=== PATIENT | female | born 1930 | race Caucasian/White ===

== ENCOUNTER → 2016-10-31 | Outpatient (CLI) | payer MEDICARE, BC ==
--- NOTE | 2016-11-01 10:09 | BD ---
EXAMINATION TYPE: MG DEXA axial skeleton. DATE OF EXAM: 10/31/2016 4:02 PM COMPARISON: Prior DEXA bone scan June 19, 2013. CLINICAL HISTORY: Postmenopausal female with known osteopenia, osteoporosis per prescription Height: 4 FT 11 IN Weight: 111 FRAX RISK QUESTIONS: Alcohol (3 or more units per day): NO Family History (Parent hip fracture): NO Glucocorticoids (More than 3mos): NO (Ex: prednisone, prednisolone, methylprednisolone, dexamethasone, and hydrocortisone). History of Fracture in Adulthood: NO Secondary Osteoporosis: 1. Type 1 Diabetes: NO 2. Hyperthyroidism: NO 3. Menopause before 45: NO 4. Malnutrition: NO 5. Chronic liver disease: NO Rheumatoid Arthritis: NO Current Tobacco Use: NO RISK FACTORS HISTORY OF: Active: NO Postmenopausal woman: SOMETIME IN HER FORTIES NOT SURE Lost more than 2 inches in height since high school: YES Poor Health: YES MEDICATIONS: Thyroid Medications: YES Which medication: SYNTHROID How Lon YRS Additional Medications: CRESTOR, SYNTHROID , CALTRATE, B12, MAGNESIUM, HEART MEDS, BLOOD PRESSURE MED S Additional History: POOR HISTORIAN EXAM MEASUREMENTS: Bone mineral densitometry was performed using the [employer]. Bone mineral density as measured about the Lumbar spine is: ----- L1-L4(G/cm2): 1.223 T Score Values are as follows: ----- L2: -1.0 ----- L3: 1.8 ----- L4: 1.1 ----- L1-L4: 0.4 Bone mineral density has: Increased 9.7% since study of: 2012 Bone mineral density about the R hip (g/cm2): 0.656 Bone mineral density about the L hip (g/cm2): 0.674 T Score values are as follows: -----R Neck: -2.7 -----L Neck: -2.6 -----R Intertrochanter: -3.4 -----L Intertrochanter: -3.1 Bone mineral density has: Decreased -12.6 % since study of: 2012 IMPRESSION: Osteoporosis (T Score less than -2.5) as noted by T Score values at the bilateral hips is now present . Bone density is decreased or diminished from prior. There is increased fracture risk and therapy is usually indicated based on age. Re-Screen 1-2 years. Bone density noted falsely elevated in the low back. NOTE: T-SCORE=SD OF THE YOUNG ADULT MEAN.
--- NOTE | 2016-11-01 11:03 | MM ---
Reason for exam: screening (asymptomatic). Last mammogram was performed 11 years and 1 month ago. History: Patient is postmenopausal. Physical Findings: A clinical breast exam by your physician is recommended on an annual basis and results should be correlated with mammographic findings. MG 3D Screening Mammo W/Cad Bilateral CC and MLO view(s) were taken. No prior studies available for comparison. Finding: There are typically benign round, diffuse/scattered calcifications in both breasts. Previous mammotome biopsy in the right breast. There is a chronic nodularity bilaterally. There is no discrete abnormality. ASSESSMENT: Benign, BI-RAD 2 RECOMMENDATION: Routine screening mammogram of both breasts in 1 year.
== END | disposition home or self-care (01) ==
LOC: RADMAMWWP 14:37
PROVIDERS: ATTEND Internal Medicine
DX: Z12.31 Encounter for screening mammogram for malignant neoplasm of breast (principal); M81.0 Age-related osteoporosis without current pathological fracture
CPT/HCPCS: 77080; 77063; G0202

== ENCOUNTER → 2016-12-19 | Outpatient (CLI) | payer MEDICARE, BC ==
[~2016-12-19] MED LIST: DENOSUMAB 60 MG/ML 1 ML SYRINGE SQ ONE
[2016-12-19 13:51] VITALS: BP 146/68; PULSE 54; RESP 16; TEMP 98.1
== END | disposition home or self-care (01) ==
LOC: PROCWHC3 13:29
PROVIDERS: ATTEND Internal Medicine
DX: M81.0 Age-related osteoporosis without current pathological fracture (principal); N18.3 Chronic kidney disease, stage 3 (moderate)
CPT/HCPCS: 96372; J0897

== ENCOUNTER 2017-04-09 15:06 | Emergency (ER) | payer MEDICARE, BC ==
[2017-04-09] MEDS ORDERED: ONDANSETRON 4 MG/2 ML VIAL IVP STA (15:24)
[2017-04-09] MEDS ORDERED: HYDROmorphone 1 MG/ML 1 ML SYRINGE IVP STA (15:24)
[2017-04-09] MEDS ORDERED: SODIUM CHLORIDE 0.9% 1,000 ML IV STA (15:24)
[2017-04-09] MEDS ORDERED: RX INFO: IV CONTRAST WAS GIVEN 1 EACH MISC MISCELLANE PRN (15:24)
--- NOTE | 2017-04-09 15:27 | ED ---
Abdominal Pain HPI - General Chief Complaint: Abdominal Pain Stated Complaint: lt side pain Time Seen by Provider: 04/09/17 15:16 Source: patient Mode of arrival: ambulatory Limitations: no limitations - History of Present Illness Initial Comments: This 86-year-old white female presents with a complaint of some left lower quadrant abdominal pain. She states that it came on yesterday. It is fairly severe in nature. She denies any nausea vomiting diarrhea or constipation or fever. She saw her doctor yesterday and received a pain shot. The pain has been very persistent. She denies any known history of diverticulitis. She denies any previous similar incidents. She apparently saw her doctor's nurse practitioner yesterday and they thought she might have an abdominal wall muscle strain and put her on baclofen and a Medrol Dosepak. She has not started taking this medication as of yet. She has had occasional pain in her right lower abdomen. She does relate a significant history of renal disease. No other complaints or modifying factors. - Related Data Home Medications Medication Instructions Recorded Confirmed Levothyroxine Sodium [Synthroid] 75 mcg PO [id number] 09/24/14 04/09/17 Rosuvastatin [Crestor] 10 mg PO W/SUPPER 09/24/14 04/09/17 Calcium Carbonate/Vitamin D3 1 tab PO W/SUPPER 12/19/16 04/09/17 [Caltrate 600 Plus D3 Tablet] Cholecalciferol [Vitamin D3] 2,000 unit PO DAILY 12/19/16 04/09/17 Allopurinol [Zyloprim] 100 mg PO DAILY 04/09/17 04/09/17 Aspirin EC [Ecotrin Low Dose] 81 mg PO DAILY 04/09/17 04/09/17 Baclofen [Lioresal] 5 mg PO QID 04/09/17 04/09/17 Famotidine [Pepcid] 20 mg PO DAILY 04/09/17 04/09/17 Furosemide [Lasix] 80 mg PO MOFR 04/09/17 04/09/17 Isosorbide Mononitrate ER [Imdur] 30 mg PO DAILY 04/09/17 04/09/17 Isosorbide Mononitrate ER [Imdur] 60 mg PO DAILY 04/09/17 04/09/17 Metoprolol Succinate (ER) [Toprol 50 mg PO HS 04/09/17 04/09/17 Xl] Multivitamins, Thera [Multivitamin 1 tab PO W/SUPPER 04/09/17 04/09/17 (formulary)] Thiamine [Vitamin B-1] 100 mg PO W/SUPPER 04/09/17 04/09/17 methylPREDNISolone Dose Pack See Taper PO DAILY 04/09/17 04/09/17 [Medrol Dose Pack] Previous Rx's Medication Instructions Recorded Ciprofloxacin HCl [Cipro] 500 mg PO Q12HR #20 tablet 04/09/17 Hydrocodone/Acetaminophen [[place] 1 - 2 each PO Q4HR PRN #20 tab 04/09/17 5-325] metroNIDAZOLE [Flagyl] 500 mg PO BID #20 tab 04/09/17 Allergies Allergy/AdvReac Type Severity Reaction Status Date / Time No Known Allergies Allergy Verified 04/09/17 15:57 Review of Systems ROS Statement: Those systems with pertinent positive or pertinent negative responses have been documented in the HPI. ROS Other: All systems not noted in ROS Statement are negative. Past Medical History Past Medical History: Blood Disorder, GERD/Reflux, Hyperlipidemia, Osteoarthritis (OA), Renal Disease, Thyroid Disorder Additional Past Medical History / Comment(s): 09/19/15 Pt presented to [facility] ER with chest pain-tightness anterior aspect of her chest which radiated to her L arm. This began today and has associated SOB. Symptoms improved when she sat down and rested. Pt is admitted with clinical impression of chest pain, unstable angina pectorias, NSTEMI. Other HX: CKD stage IV, hypothyroidism, anemia, sciatica radiating down both legs, UTI's in the past. PT states she was taken off her HTN medication about one year ago. History of Any Multi-Drug Resistant Organisms: None Reported Past Surgical History: Cholecystectomy, Joint Replacement, Orthopedic Surgery, Tonsillectomy Additional Past Surgical History / Comment(s): Bilateral total knee replacements , Bilateral Cataract surgery, Right carpal tunnel release, back injections, colonoscopy-normal. Past Anesthesia/Blood Transfusion Reactions: No Reported Reaction Past Psychological History: Anxiety Smoking Status: Never smoker - Past Family History Mother Family Medical History: CVA/TIA Additional Family Medical History / Comment(s): Mother lived into her 80's Father Family Medical History: Coronary Artery Disease (CAD) Additional Family Medical History / Comment(s): Father lived into his 80's Sister(s) Family Medical History: Cancer Son(s) Family Medical History: No Reported History Daughter(s) Family Medical History: No Reported History General Exam - General Exam Comments Initial Comments: GENERAL: The patient is well nourished and well hydrated. She is in some moderate distress. VITAL SIGNS: Heart rate, blood pressure, respiratory rate reviewed as recorded in nurse's notes. EYES: Pupils are round and reactive. Extraocular movements are intact. No conjunctival / lid redness or swelling. ENT: No external evidence of injury, swelling, or ecchymosis. Airway is patent. Throat is clear. NECK: Nontender. No swelling or evidence of injury. No subcutaneous emphysema. Trachea is midline. No thyroid mass. HEART: Regular rate and rhythm. Good peripheral pulses. LUNGS/CHEST: Breath sounds clear and equal bilaterally. No rales, rhonchi, or wheezes. No ecchymosis, subcutaneous emphysema, or tenderness. ABDOMEN: Abdomen is soft with tenderness noted in the left lower quadrant. There is no flank tenderness noted. No palpable masses or organomegaly. No peritoneal signs. No abdominal wall swelling or ecchymosis. EXTREMITIES: No extremity tenderness. Normal muscle tone and function. No thoracolumbar tenderness. NEUROLOGIC: Sensation is grossly intact. Cranial nerve exam reveals face is symmetrical, tongue is midline, speech is clear. SKIN: No abrasions or ecchymosis is noted. No induration or masses noted. PSYCHIATRIC: Alert and oriented. Appropriate behavior and judgment. Limitations: no limitations Course Vital Signs 04/09/17 04/09/17 15:08 16:30 Temperature 97.6 F 98.5 F Pulse Rate 71 61 Respiratory 24 18 Rate Blood Pressure 180/95 168/80 O2 Sat by Pulse 99 97 Oximetry Medical Decision Making - Medical Decision Making The patient was seen and examined. All diagnostics were reviewed. Dilaudid as well as Zofran was given intravenously. She is feeling remarkably better on recheck. The laboratory shows a slight elevation of the white blood cell count. She had a computed tomography scan of the abdomen and pelvis. This needed to be done without contrast due to her renal disease. Her BUN/ creatinine and creatinine are elevated and lower trended out and are stable as compared to previous. The computed tomography scan shows significant evidence of diverticulosis but no definite evidence of diverticulitis. Is felt as though she likely could still potentially have a degree of diverticulitis as this is clinically suspicious but it is just not showing up on a noncontrasted computed tomography scan. She feels okay to be discharged home with attempt at outpatient treatment. Return parameters are discussed. Diet therapy is discussed. - Lab Data Result diagrams: 04/09/17 15:43 04/09/17 15:43 Lab Results 04/09/17 04/09/17 04/09/17 Range/Units 15:43 15:43 15:43 WBC 13.6 H (3.8-10.6) k/uL RBC 3.74 L (3.80-5.40) m/uL Hgb 11.8 (11.4-16.0) gm/dL Hct 36.7 (34.0-46.0) % MCV 98.1 (80.0-100.0) fL MCH 31.6 (25.0-35.0) pg MCHC 32.3 (31.0-37.0) g/dL RDW 14.7 (11.5-15.5) % Plt Count 164 (150-450) k/uL Neutrophils % 88 % Lymphocytes % 6 % Monocytes % 4 % Eosinophils % 0 % Basophils % 0 % Neutrophils # 12.0 H (1.3-7.7) k/uL Lymphocytes # 0.8 L (1.0-4.8) k/uL Monocytes # 0.6 (0-1.0) k/uL Eosinophils # 0.0 (0-0.7) k/uL Basophils # 0.0 (0-0.2) k/uL PT 11.1 (9.0-12.0) sec INR 1.1 (<1.2) APTT 20.0 L (22.0-30.0) sec Sodium 141 (137-145) mmol/L Potassium 4.3 (3.5-5.1) mmol/L Chloride 108 H (98-107) mmol/L Carbon Dioxide 21 L (22-30) mmol/L Anion Gap 12 mmol/L BUN 56 H (7-17) mg/dL Creatinine 3.41 H (0.52-1.04) mg/dL Est GFR (MDRD) Af Amer 16 (>60 ml/min/1.73 sqM) Est GFR (MDRD) Non-Af 13 (>60 ml/min/1.73 sqM) Glucose 116 H (74-99) mg/dL Calcium 8.6 (8.4-10.2) mg/dL Total Bilirubin 0.5 (0.2-1.3) mg/dL AST 20 (14-36) U/L ALT 27 (9-52) U/L Alkaline Phosphatase 55 (38-126) U/L Total Protein 6.2 L (6.3-8.2) g/dL Albumin 3.8 (3.5-5.0) g/dL Amylase 80 (30-110) U/L Lipase 54 (23-300) U/L Urine Color Urine Appearance (Clear) Urine pH (5.0-8.0) Ur Specific [place] (1.001-1.035) Urine Protein (Negative) Urine Glucose (UA) (Negative) Urine Ketones (Negative) Urine Blood (Negative) Urine Nitrite (Negative) Urine Bilirubin (Negative) Urine Urobilinogen (<2.0) mg/dL Ur Leukocyte Esterase (Negative) Urine WBC (0-5) /hpf Urine Bacteria (None) /hpf Urine Yeast (Budding) (None) /hpf // Range/Units 17:03 WBC (3.8-10.6) k/uL RBC (3.80-5.40) m/uL Hgb (11.4-16.0) gm/dL Hct (34.0-46.0) % MCV (80.0-100.0) fL MCH (25.0-35.0) pg MCHC (31.0-37.0) g/dL RDW (11.5-15.5) % Plt Count (150-450) k/uL Neutrophils % % Lymphocytes % % Monocytes % % Eosinophils % % Basophils % % Neutrophils # (1.3-7.7) k/uL Lymphocytes # (1.0-4.8) k/uL Monocytes # (0-1.0) k/uL Eosinophils # (0-0.7) k/uL Basophils # (0-0.2) k/uL PT (9.0-12.0) sec INR (<1.2) APTT (22.0-30.0) sec Sodium (137-145) mmol/L Potassium (3.5-5.1) mmol/L Chloride (98-107) mmol/L Carbon Dioxide (22-30) mmol/L Anion Gap mmol/L BUN (7-17) mg/dL Creatinine (0.52-1.04) mg/dL Est GFR (MDRD) Af Amer (>60 ml/min/1.73 sqM) Est GFR (MDRD) Non-Af (>60 ml/min/1.73 sqM) Glucose (74-99) mg/dL Calcium (8.4-10.2) mg/dL Total Bilirubin (0.2-1.3) mg/dL AST (14-36) U/L ALT (9-52) U/L Alkaline Phosphatase (38-126) U/L Total Protein (6.3-8.2) g/dL Albumin (3.5-5.0) g/dL Amylase (30-110) U/L Lipase (23-300) U/L Urine Color Yellow Urine Appearance Clear (Clear) Urine pH 6.0 (5.0-8.0) Ur Specific [place] 1.012 (1.001-1.035) Urine Protein 3+ H (Negative) Urine Glucose (UA) Negative (Negative) Urine Ketones Negative (Negative) Urine Blood Trace H (Negative) Urine Nitrite Negative (Negative) Urine Bilirubin Negative (Negative) Urine Urobilinogen <2.0 (<2.0) mg/dL Ur Leukocyte Esterase Negative (Negative) Urine WBC 1 (0-5) /hpf Urine Bacteria Occasional H (None) /hpf Urine Yeast (Budding) Few H (None) /hpf Disposition Clinical Impression: Abdominal pain, Diverticulosis, Leukocytosis, Diverticulitis, Hypertension Disposition: HOME SELF-CARE Condition: Good Instructions: Abdominal Pain (ED), Diverticulitis (ED), Hypertension (ED) Prescriptions: Ciprofloxacin HCl [Cipro] 500 mg PO Q12HR #20 tablet Hydrocodone/Acetaminophen [[place] 5-325] 1 - 2 each PO Q4HR PRN #20 tab PRN Reason: Pain metroNIDAZOLE [Flagyl] 500 mg PO BID #20 tab Referrals: Rikki Leong MD [Primary Care Provider] - 1-2 days Time of Disposition: 17:42
[2017-04-09 16:03] LABS: Basophils % (A) 0 %; CH 32.2; CHCM 32.9; Eosinophils % (A) 0 %; HCT 36.7 % (34.0-46.0); HDW 2.36; HGB 11.8 gm/dL (11.4-16.0); Luc # (Auto) 0.14; Luc % (Auto) 1; Lymphocytes # (A) 0.8 k/uL (1.0-4.8); Lymphocytes % (A) 6 %; MCH 31.6 pg (25.0-35.0); MCHC 32.3 g/dL (31.0-37.0); MCV 98.1 fL (80.0-100.0); Mean Platelet Volume 8.3; Monocytes # (A) 0.6 k/uL (0-1.0); Monocytes % (A) 4 %; Neutrophils % (A) 88 %; RBC 3.74 m/uL (3.80-5.40); RDW 14.7 % (11.5-15.5); WBC 13.6 k/uL (3.8-10.6); WBC (Perox) 13.29
[2017-04-09 16:07] LABS: Calcium 8.6 mg/dL (8.4-10.2); INR 1.1 (<1.2); Potassium 4.3 mmol/L (3.5-5.1); Prothrombin Time 11.1 sec (9.0-12.0); Total Bilirubin 0.5 mg/dL (0.2-1.3); Total Protein 6.2 g/dL (6.3-8.2)
--- NOTE | 2017-04-09 17:00 | CT ---
EXAMINATION TYPE: CT abdomen pelvis wo con DATE OF EXAM: 04/09/2017 COMPARISON: 09/24/2015 HISTORY: Pt states of abdominal pain. CT DLP: 659 mGycm Automated exposure control for dose reduction was used. TECHNIQUE: Helical acquisition of images was performed from the lung bases through the pelvis. FINDINGS: There is right pleural effusion. There is fibrotic changes at both lung bases. There are clips from cholecystectomy. Liver shows no focal defect. Spleen appears normal. There is no pancreatic mass. Abdominal aorta is atheromatous. There is no adrenal mass. Kidneys show no hydronephrosis. Ureters are not dilated. Appendix appears n ormal. There are numerous colonic diverticula. There is no evidence of diverticulitis. There are calc ified uterine fibroids. There is a pessary at the floor of the pelvis. There are spondylotic changes in the lumbar spine. I see no compression fracture. Bladder distends smoothly. Heart is enlarged. IMPRESSION: CARDIOMEGALY WITH RIGHT PLEURAL EFFUSION. THIS COULD RELATE TO SOME CONGESTIVE HEART FAILURE. THERE I S SIGNIFICANT IMPROVEMENT IN THE PLEURAL EFFUSIONS COMPARED TO LAST EXAM. ATHEROSCLEROTIC VASCULAR DISEASE. MODERATELY SEVERE COLONIC DIVERTICULOSIS. NORMAL APPENDIX. THERE IS CLEARING OF THE FREE FLUID IN THE PELVIS COMPARED TO OLD EXAM.
[2017-04-09 17:25] LABS: Appearance,Urine Clear (Clear); Bacteria,Urine Occasional /hpf; Bilirubin,Urine Negative (Negative); Glucose,Urine (UA) Negative (Negative); Ketones,Urine Negative (Negative); Leukocyte Esterase,Urine Negative (Negative); Nitrite,Urine Negative (Negative); Particle Count 9081; Protein,Urine 3+ (Negative); Specific Gravity,Urine 1.012 (1.001-1.035); UA Billing (MACRO vs. MICRO) MICRO; Urobilinogen,Urine <2.0 mg/dL (<2.0); WBC,Urine 1 /hpf (0-5)
[2017-04-09 17:45] VITALS: BP 175/86; PULSE 67; RESP 16; TEMP 97.8
[2017-04-09] MEDS ORDERED: MORPHINE SULFATE 4 MG/ML SYRINGE IVP STA (17:54)
[2017-04-09] MEDS ORDERED: MORPHINE SULFATE 2 MG/ML SYRINGE IVP ONE (17:56)
== END 2017-04-09 18:27 | disposition home or self-care (01) ==
LOC: EC 15:06
DX: K57.32 Diverticulitis of large intestine without perforation or abscess without bleeding (principal); I12.9 Hypertensive chronic kidney disease with stage 1 through stage 4 chronic kidney disease, or unspecified chronic kidney disease; D72.829 Elevated white blood cell count, unspecified; R79.89 Other specified abnormal findings of blood chemistry; N18.4 Chronic kidney disease, stage 4 (severe); E78.5 Hyperlipidemia, unspecified; K21.9 Gastro-esophageal reflux disease without esophagitis; E03.9 Hypothyroidism, unspecified; M19.90 Unspecified osteoarthritis, unspecified site; Z79.82 Long term (current) use of aspirin; Z79.899 Other long term (current) drug therapy; Z90.49 Acquired absence of other specified parts of digestive tract; Z53.20 Procedure and treatment not carried out because of patient's decision for unspecified reasons
CPT/HCPCS: 36415; 93005; 80053; 82150; 83690; 85025; 85610; 85730; 81001; 74176; 99284; 96374; 96375; 96361 ×2; J2405; J2270

== ENCOUNTER → 2017-08-20 | Outpatient (CLI) | payer MEDICARE, BC ==
[2017-08-20 14:07] LABS: Basophils # (A) 0.1 k/uL (0-0.2); Basophils % (A) 1 %; CH 30.9; CHCM 31.1; Eosinophils # (A) 0.4 k/uL (0-0.7); Eosinophils % (A) 5 %; HCT 33.2 % (34.0-46.0); HDW 2.22; HGB 10.4 gm/dL (11.4-16.0); Hypochromasia Slight; Luc # (Auto) 0.11; Luc % (Auto) 1; Lymphocytes # (A) 1.3 k/uL (1.0-4.8); Lymphocytes % (A) 16 %; MCH 31.2 pg (25.0-35.0); MCHC 31.2 g/dL (31.0-37.0); MCV 99.9 fL (80.0-100.0); Macrocytosis Slight; Mean Platelet Volume 8.7; Monocytes # (A) 0.5 k/uL (0-1.0); Monocytes % (A) 6 %; Neutrophils # (A) 5.6 k/uL (1.3-7.7); Neutrophils % (A) 71 %; RBC 3.33 m/uL (3.80-5.40); RDW 15.8 % (11.5-15.5); WBC 7.9 k/uL (3.8-10.6); WBC (Perox) 8.03
[2017-08-20 14:11] LABS: Calcium 9.7 mg/dL (8.4-10.2); Magnesium 1.9 mg/dL (1.6-2.3); Potassium 4.2 mmol/L (3.5-5.1); Total Bilirubin 0.3 mg/dL (0.2-1.3); Total Protein 6.2 g/dL (6.3-8.2); Uric Acid 5.7 mg/dL (3.7-7.4)
[2017-08-20 19:27] LABS: Appearance,Urine Clear (Clear); Bacteria,Urine Occasional /hpf; Bilirubin,Urine Negative (Negative); Glucose,Urine (UA) Negative (Negative); Ketones,Urine Negative (Negative); Leukocyte Esterase,Urine Large (Negative); Nitrite,Urine Negative (Negative); Particle Count 4118; Protein,Urine 2+ (Negative); RBC,Urine 2 /hpf (0-5); Specific Gravity,Urine 1.011 (1.001-1.035); Squamous Epithelial Cell,Urine 2 /hpf (0-4); UA Billing (MACRO vs. MICRO) MICRO; Urobilinogen,Urine <2.0 mg/dL (<2.0); WBC,Urine 15 /hpf (0-5)
[2017-08-21 11:55] LABS: Urine Creatinine 71.7 mg/dL
== END | disposition home or self-care (01) ==
LOC: LABWHC1 13:17
PROVIDERS: ATTEND Internal Medicine
DX: E78.5 Hyperlipidemia, unspecified (principal); E03.9 Hypothyroidism, unspecified; I12.9 Hypertensive chronic kidney disease with stage 1 through stage 4 chronic kidney disease, or unspecified chronic kidney disease; E11.22 Type 2 diabetes mellitus with diabetic chronic kidney disease; N18.3 Chronic kidney disease, stage 3 (moderate)
CPT/HCPCS: 36415; 80053; 80061; 81001; 82043; 82306; 82550; 82570; 83036; 83735; 83970; 84439; 84443; 84550; 85025

== ENCOUNTER 2018-03-21 16:40 | Emergency (ER) | payer MEDICARE, BC ==
[2018-03-21 17:15] VITALS: RESP 18
[2018-03-21] MEDS ORDERED: SODIUM CHLORIDE 0.9% 500 ML IV STA (18:58)
--- NOTE | 2018-03-21 19:06 | ED ---
Abdominal Pain HPI - General Chief Complaint: Abdominal Pain Stated Complaint: LLQ pain sent by ME Time Seen by Provider: 03/21/18 18:51 Source: patient Mode of arrival: wheelchair Limitations: no limitations - History of Present Illness Initial Comments: 87-year-old female patient presents to the emergency department today for evaluation of left lower quadrant abdominal pain. Patient states that the pain is more in her groin. States it started on Saturday. Patient states for the last 4 days she has been unable to move around or get out of bed due to the pain. She describes the pain as a sharp stabbing pain. She state it occasionally radiated to her back. Patient denies any nausea or vomiting with this. Denies fever, chills, diarrhea, constipation, hematochezia, melena, hematuria, dysuria, urinary frequency, urinary urgency. Patient states she did have similar pain to this in the past with diverticulitis. Patient has had cholecystectomy. Denies any other abdominal surgeries. Patient states that she has had some external vulvar itching. Denies any recent use of antibiotics. Patient denies any recent rash, shortness breath, chest pain, numbness, tingling, dizziness, weakness, headache, visual changes, or any other complaints. Patient states that symptoms have improved somewhat today. - Related Data Home Medications Medication Instructions Recorded Confirmed Levothyroxine Sodium [Synthroid] 75 mcg PO DAILY 09/24/14 03/21/18 Rosuvastatin [Crestor] 10 mg PO W/SUPPER 09/24/14 03/21/18 Calcium Carbonate/Vitamin D3 1 tab PO W/SUPPER 12/19/16 03/21/18 [Caltrate 600 Plus D3 Tablet] Cholecalciferol [Vitamin D3] 2,000 unit PO DAILY 12/19/16 03/21/18 Allopurinol [Zyloprim] 100 mg PO DAILY 04/09/17 03/21/18 Aspirin EC [Ecotrin Low Dose] 81 mg PO DAILY 04/09/17 03/21/18 Famotidine [Pepcid] 20 mg PO DAILY 04/09/17 03/21/18 Isosorbide Mononitrate ER [Imdur] 60 mg PO DAILY 04/09/17 03/21/18 Metoprolol Succinate (ER) [Toprol 50 mg PO DAILY 04/09/17 03/21/18 Xl] Cyanocobalamin (Vitamin B-12) 1,000 mcg PO DAILY 03/21/18 03/21/18 [Vitamin B-12] buPROPion XL [Wellbutrin Xl] 150 mg PO DAILY 03/21/18 03/21/18 Allergies Allergy/AdvReac Type Severity Reaction Status Date / Time No Known Allergies Allergy Verified 03/21/18 20:07 Review of Systems ROS Statement: Those systems with pertinent positive or pertinent negative responses have been documented in the HPI. ROS Other: All systems not noted in ROS Statement are negative. Past Medical History Past Medical History: Blood Disorder, GERD/Reflux, Hyperlipidemia, Osteoarthritis (OA), Renal Disease, Thyroid Disorder Additional Past Medical History / Comment(s): 09/19/15 Pt presented to [facility] ER with chest pain-tightness anterior aspect of her chest which radiated to her L arm. This began today and has associated SOB. Symptoms improved when she sat down and rested. Pt is admitted with clinical impression of chest pain, unstable angina pectorias, NSTEMI. Other HX: CKD stage IV, hypothyroidism, anemia, sciatica radiating down both legs, UTI's in the past. PT states she was taken off her HTN medication about one year ago. History of Any Multi-Drug Resistant Organisms: None Reported Past Surgical History: Cholecystectomy, Joint Replacement, Orthopedic Surgery, Tonsillectomy Additional Past Surgical History / Comment(s): Bilateral total knee replacements , Bilateral Cataract surgery, Right carpal tunnel release, back injections, colonoscopy-normal. Past Anesthesia/Blood Transfusion Reactions: No Reported Reaction Past Psychological History: Anxiety Smoking Status: Never smoker Past Alcohol Use History: None Reported Past Drug Use History: None Reported - Past Family History Mother Family Medical History: CVA/TIA Additional Family Medical History / Comment(s): Mother lived into her 80's Father Family Medical History: Coronary Artery Disease (CAD) Additional Family Medical History / Comment(s): Father lived into his 80's Sister(s) Family Medical History: Cancer Son(s) Family Medical History: No Reported History Daughter(s) Family Medical History: No Reported History General Exam Limitations: no limitations General appearance: alert, in no apparent distress, other (This is a well- developed, well-nourished elderly female patient in no acute distress. Vital signs upon presentation are temperature 97.4F, pulse 53, respirations 18, blood pressure 133/72, pulse ox 95% on room air.) Eye exam: Present: normal appearance, PERRL, EOMI. Absent: scleral icterus, conjunctival injection, periorbital swelling ENT exam: Present: normal exam, normal oropharynx, mucous membranes moist Respiratory exam: Present: normal lung sounds bilaterally. Absent: respiratory distress, wheezes, rales, rhonchi, stridor Cardiovascular Exam: Present: regular rate, normal rhythm, normal heart sounds. Absent: systolic murmur, diastolic murmur, rubs, gallop, clicks GI/Abdominal exam: Present: soft, tenderness (Mild right lower quadrant tenderness. ), normal bowel sounds. Absent: distended, guarding, rebound, rigid , hernia Back exam: Present: normal inspection. Absent: CVA tenderness (R), CVA tenderness (L) Neurological exam: Present: alert, oriented X3, CN II-XII intact Psychiatric exam: Present: normal affect, normal mood Skin exam: Present: warm, dry, intact, normal color. Absent: rash Course Vital Signs 03/21/18 03/21/18 03/21/18 17:12 20:30 21:59 Temperature 97.4 F L 97.8 F 97.2 F L Pulse Rate 53 L 57 L 62 Respiratory 18 18 18 Rate Blood Pressure 133/72 158/72 163/74 O2 Sat by Pulse 95 95 98 Oximetry Medical Decision Making - Medical Decision Making 87-year-old female patient presented to the emergency department today for evaluation of left lower quadrant and groin pain. Physical examination is relatively unremarkable. Abdomen is soft and not tender. Patient had been having pain for the last 4 days, improving today. Patient is afebrile, vital signs are stable. We did obtain computed tomography scan of the abdomen and pelvis without contrast due to patient's renal failure, this showed no evidence of diverticulitis or other acute processes. I did discuss findings and results with the patient. She is currently pain-free. She does feel comfortable being discharged home to follow-up with her primary care physician. Return parameters were discussed in detail. She verbalizes understanding and agrees. - Lab Data Result diagrams: 03/21/18 19:51 03/21/18 19:51 Lab Results 06/29/18 06/29/18 06/29/18 Range/Units 19:51 19:51 19:51 WBC 7.6 (3.8-10.6) k/uL RBC 3.40 L (3.80-5.40) m/uL Hgb 10.4 L (11.4-16.0) gm/dL Hct 32.3 L (34.0-46.0) % MCV 95.1 (80.0-100.0) fL MCH 30.7 (25.0-35.0) pg MCHC 32.3 (31.0-37.0) g/dL RDW 15.3 (11.5-15.5) % Plt Count 143 L (150-450) k/uL Neutrophils % 69 % Lymphocytes % 18 % Monocytes % 7 % Eosinophils % 4 % Basophils % 0 % Neutrophils # 5.2 (1.3-7.7) k/uL Lymphocytes # 1.4 (1.0-4.8) k/uL Monocytes # 0.5 (0-1.0) k/uL Eosinophils # 0.3 (0-0.7) k/uL Basophils # 0.0 (0-0.2) k/uL Sodium 139 (137-145) mmol/L Potassium 4.5 (3.5-5.1) mmol/L Chloride 101 (98-107) mmol/L Carbon Dioxide 25 (22-30) mmol/L Anion Gap 13 mmol/L BUN 57 H (7-17) mg/dL Creatinine 3.75 H (0.52-1.04) mg/dL Est GFR (CKD-EPI)AfAm 12 (>60 ml/min/1.73 sqM) Est GFR (CKD-EPI)NonAf 10 (>60 ml/min/1.73 sqM) Glucose 80 (74-99) mg/dL Plasma Lactic Acid Jon 1.1 (0.7-2.0) mmol/L Calcium 9.6 (8.4-10.2) mg/dL Total Bilirubin 0.4 (0.2-1.3) mg/dL AST 19 (14-36) U/L ALT 24 (9-52) U/L Alkaline Phosphatase 85 (38-126) U/L Total Protein 6.1 L (6.3-8.2) g/dL Albumin 3.8 (3.5-5.0) g/dL Amylase 76 (30-110) U/L Lipase 67 (23-300) U/L Urine Color Urine Appearance (Clear) Urine pH (5.0-8.0) Ur Specific [place] (1.001-1.035) Urine Protein (Negative) Urine Glucose (UA) (Negative) Urine Ketones (Negative) Urine Blood (Negative) Urine Nitrite (Negative) Urine Bilirubin (Negative) Urine Urobilinogen (<2.0) mg/dL Ur Leukocyte Esterase (Negative) Urine RBC (0-5) /hpf Urine WBC (0-5) /hpf Urine Mucus (None) /hpf 03/21/18 Range/Units 20:55 WBC (3.8-10.6) k/uL RBC (3.80-5.40) m/uL Hgb (11.4-16.0) gm/dL Hct (34.0-46.0) % MCV (80.0-100.0) fL MCH (25.0-35.0) pg MCHC (31.0-37.0) g/dL RDW (11.5-15.5) % Plt Count (150-450) k/uL Neutrophils % % Lymphocytes % % Monocytes % % Eosinophils % % Basophils % % Neutrophils # (1.3-7.7) k/uL Lymphocytes # (1.0-4.8) k/uL Monocytes # (0-1.0) k/uL Eosinophils # (0-0.7) k/uL Basophils # (0-0.2) k/uL Sodium (137-145) mmol/L Potassium (3.5-5.1) mmol/L Chloride (98-107) mmol/L Carbon Dioxide (22-30) mmol/L Anion Gap mmol/L BUN (7-17) mg/dL Creatinine (0.52-1.04) mg/dL Est GFR (CKD-EPI)AfAm (>60 ml/min/1.73 sqM) Est GFR (CKD-EPI)NonAf (>60 ml/min/1.73 sqM) Glucose (74-99) mg/dL Plasma Lactic Acid Jon (0.7-2.0) mmol/L Calcium (8.4-10.2) mg/dL Total Bilirubin (0.2-1.3) mg/dL AST (14-36) U/L ALT (9-52) U/L Alkaline Phosphatase (38-126) U/L Total Protein (6.3-8.2) g/dL Albumin (3.5-5.0) g/dL Amylase (30-110) U/L Lipase (23-300) U/L Urine Color Colorless Urine Appearance Clear (Clear) Urine pH 6.0 (5.0-8.0) Ur Specific [place] 1.007 (1.001-1.035) Urine Protein Trace H (Negative) Urine Glucose (UA) Negative (Negative) Urine Ketones Negative (Negative) Urine Blood Negative (Negative) Urine Nitrite Negative (Negative) Urine Bilirubin Negative (Negative) Urine Urobilinogen <2.0 (<2.0) mg/dL Ur Leukocyte Esterase Small H (Negative) Urine RBC <1 (0-5) /hpf Urine WBC 15 H (0-5) /hpf Urine Mucus Rare H (None) /hpf - Radiology Data Radiology results: report reviewed, image reviewed CT of the abdomen and pelvis without contrast was obtained. Report was reviewed in its entirety. Impression by Dr. Rodriguez shows pleural effusions or increased compared to old exam. Cardiomegaly. Atherosclerotic vascular disease. Renal atrophy. Sigmoid diverticulosis without diverticulitis. No evidence of inguinal hernia. Disposition Clinical Impression: Abdominal pain Disposition: HOME SELF-CARE Condition: Good Instructions: Abdominal Pain (ED) Additional Instructions: Follow-up with your primary care physician for recheck in 1-2 days. Return here immediately for any new, worsening, or concerning symptoms. Is patient prescribed a controlled substance at d/c from ED?: No Referrals: Rikki Leong MD [Primary Care Provider] - 1-2 days Time of Disposition: 21:44
[2018-03-21 20:05] LABS: Basophils % (A) 0 %; Eosinophils # (A) 0.3 k/uL (0-0.7); Eosinophils % (A) 4 %; HCT 32.3 % (34.0-46.0); HGB 10.4 gm/dL (11.4-16.0); Lymphocytes # (A) 1.4 k/uL (1.0-4.8); Lymphocytes % (A) 18 %; MCH 30.7 pg (25.0-35.0); MCHC 32.3 g/dL (31.0-37.0); MCV 95.1 fL (80.0-100.0); Monocytes # (A) 0.5 k/uL (0-1.0); Monocytes % (A) 7 %; Neutrophils # (A) 5.2 k/uL (1.3-7.7); Neutrophils % (A) 69 %; Platelet Count 143 k/uL (150-450); RDW 15.3 % (11.5-15.5); WBC 7.6 k/uL (3.8-10.6)
[2018-03-21 20:15] LABS: Albumin 3.8 g/dL (3.5-5.0); Calcium 9.6 mg/dL (8.4-10.2); Potassium 4.5 mmol/L (3.5-5.1); Total Bilirubin 0.4 mg/dL (0.2-1.3); Total Protein 6.1 g/dL (6.3-8.2)
--- NOTE | 2018-03-21 20:54 | CT ---
EXAMINATION TYPE: CT abdomen pelvis wo con DATE OF EXAM: 03/21/2018 COMPARISON: NONE HISTORY: Left groin pain. CT DLP: 271.8 mGycm Automated exposure control for dose reduction was used. TECHNIQUE: Helical acquisition of images was performed from the lung bases through the pelvis. FINDINGS: The heart is enlarged. There are bilateral pleural effusions. There is some mild interstitial infiltr ate at the lung bases. There are clips from cholecystectomy. Liver spleen pancreas appear normal. Bile ducts are not dilated . There is no adrenal mass. Kidneys appear small. There is no hydronephrosis. Abdominal aorta is athe romatous. There is no evidence of retroperitoneal adenopathy. Bladder distends smoothly. There are nu merous sigmoid diverticula. There is no evidence of diverticulitis. Uterus is retroverted. There is n o free fluid. Appendix appears normal. I see no bony destructive process. There is moderate multileve l lumbar spondylosis. IMPRESSION: THERE ARE PLEURAL EFFUSIONS THAT ARE INCREASED COMPARED TO OLD EXAM. CARDIOMEGALY. ATHEROSCLEROTIC VA SCULAR DISEASE. RENAL ATROPHY. SIGMOID DIVERTICULOSIS WITHOUT DIVERTICULITIS. NO EVIDENCE OF INGUINAL HERNIA.
[2018-03-21 21:07] LABS: Appearance,Urine Clear (Clear); Bilirubin,Urine Negative (Negative); Blood,Urine Negative (Negative); Color,Urine Colorless; Glucose,Urine (UA) Negative (Negative); Ketones,Urine Negative (Negative); Leukocyte Esterase,Urine Small (Negative); Mucus,Urine Rare /hpf; Nitrite,Urine Negative (Negative); Protein,Urine Trace (Negative); RBC,Urine <1 /hpf (0-5); Specific Gravity,Urine 1.007 (1.001-1.035); Urobilinogen,Urine <2.0 mg/dL (<2.0); WBC,Urine 15 /hpf (0-5)
[2018-03-21] MEDS ORDERED: ACET/COD 300 MG/30 MG STARTER PACK 6 TAB BTL PO STA (21:44)
[2018-03-21 22:00] VITALS: BP 163/74; PULSE 62; TEMP 97.2
== END 2018-03-21 22:00 | disposition home or self-care (01) ==
LOC: EC 16:40
DX: R10.32 Left lower quadrant pain (principal); K21.9 Gastro-esophageal reflux disease without esophagitis; E78.5 Hyperlipidemia, unspecified; M19.90 Unspecified osteoarthritis, unspecified site; I25.2 Old myocardial infarction; I12.9 Hypertensive chronic kidney disease with stage 1 through stage 4 chronic kidney disease, or unspecified chronic kidney disease; N18.4 Chronic kidney disease, stage 4 (severe); E03.9 Hypothyroidism, unspecified; F41.9 Anxiety disorder, unspecified; Z90.49 Acquired absence of other specified parts of digestive tract; Z96.653 Presence of artificial knee joint, bilateral; Z98.890 Other specified postprocedural states; Z79.82 Long term (current) use of aspirin; Z79.899 Other long term (current) drug therapy
CPT/HCPCS: 36415; 74176; 80053; 81001; 82150; 83605; 83690; 85025; 87040; 96360; 99284

== ENCOUNTER 2018-08-15 12:37 | Inpatient (IN) | payer MEDICARE, BC ==
[2018-08-15 12:58] LABS: Glucose,Whole Blood 72 mg/dL (75-99)
[2018-08-15] MEDS ORDERED: SODIUM CHLORIDE 0.9% 500 ML 500 ML IV ONE (13:13)
--- NOTE | 2018-08-15 13:49 | ED ---
General Adult HPI - General Chief complaint: Altered Mental Status Stated complaint: altered mental Source: patient, EMS Mode of arrival: EMS Limitations: altered mental status - History of Present Illness Initial comments: Dictation was produced using [employer] dictation software. please excuse any grammatical, word or spelling errors. Chief Complaint: 88-year-old female past medical history of renal disease, dyslipidemia, thyroid disease presents with altered mental status History of Present Illness: Patient is an 88-year-old female with multiple comorbidities presents with altered mental status 1 day. Patient lives with her son. This morning patient was found to be altered mentally. According to daughter who accompanies patient at bedside states that patient was having hallucinations. Patient is moaning and groaning however is complaining of her feet being cold. Patient is a poor historian and cannot provide detailed HPI. Daughter at bedside reports that patient's baseline she is able to have meaningful conversation is. Her presentation today is grossly abnormal to her baseline. The ROS documented in this emergency department record has been reviewed and confirmed by me. Those systems with pertinent positive or negative responses have been documented in the HPI. All other systems are other negative and/or noncontributory. - Related Data Home Medications Medication Instructions Recorded Confirmed Levothyroxine Sodium [Synthroid] 75 mcg PO AC-BRKFST 09/24/14 08/15/18 Rosuvastatin [Crestor] 10 mg PO AC-SUPPER 09/24/14 08/15/18 Calcium Carbonate/Vitamin D3 1 tab PO AC-SUPPER 12/19/16 08/15/18 [Caltrate 600 Plus D3 Tablet] Allopurinol [Zyloprim] 100 mg PO AC-BRKFST 04/09/17 08/15/18 Aspirin EC [Ecotrin Low Dose] 81 mg PO AC-SUPPER 04/09/17 08/15/18 Famotidine [Pepcid] 20 mg PO AC-BRKFST 04/09/17 08/15/18 Metoprolol Succinate (ER) [Toprol 50 mg PO AC-SUPPER 04/09/17 08/15/18 Xl] Cyanocobalamin (Vitamin B-12) 1,000 mcg PO AC-SUPPER 03/21/18 08/15/18 [Vitamin B-12] buPROPion XL [Wellbutrin Xl] 150 mg PO AC-BRKFST 03/21/18 08/15/18 Furosemide [Lasix] 40 mg PO MOFR 08/15/18 08/15/18 Isosorbide Mononitrate ER [Imdur] 60 mg PO AC-BRKFST 08/15/18 08/15/18 Multivitamins, Thera [Multivitamin 1 tab PO AC-SUPPER 08/15/18 08/15/18 (formulary)] Vitamin D3(Unknown) 1 tab PO AC-BRKFST 08/15/18 08/15/18 traMADol HCL [Ultram] 25 mg PO BID PRN 08/15/18 08/15/18 Allergies Allergy/AdvReac Type Severity Reaction Status Date / Time No Known Allergies Allergy Verified 08/15/18 14:39 Review of Systems ROS Statement: Those systems with pertinent positive or pertinent negative responses have been documented in the HPI. ROS Other: All systems not noted in ROS Statement are negative. Past Medical History Past Medical History: Blood Disorder, GERD/Reflux, Hyperlipidemia, Osteoarthritis (OA), Renal Disease, Thyroid Disorder Additional Past Medical History / Comment(s): 09/19/15 Pt presented to [facility] ER with chest pain-tightness anterior aspect of her chest which radiated to her L arm. This began today and has associated SOB. Symptoms improved when she sat down and rested. Pt is admitted with clinical impression of chest pain, unstable angina pectorias, NSTEMI. Other HX: CKD stage IV, hypothyroidism, anemia, sciatica radiating down both legs, UTI's in the past. PT states she was taken off her HTN medication about one year ago. History of Any Multi-Drug Resistant Organisms: None Reported Past Surgical History: Cholecystectomy, Joint Replacement, Orthopedic Surgery, Tonsillectomy Additional Past Surgical History / Comment(s): Bilateral total knee replacements , Bilateral Cataract surgery, Right carpal tunnel release, back injections, colonoscopy-normal. Past Anesthesia/Blood Transfusion Reactions: No Reported Reaction Past Psychological History: Anxiety Smoking Status: Never smoker Past Alcohol Use History: None Reported Past Drug Use History: None Reported - Past Family History Mother Family Medical History: CVA/TIA Additional Family Medical History / Comment(s): Mother lived into her 80's Father Family Medical History: Coronary Artery Disease (CAD) Additional Family Medical History / Comment(s): Father lived into his 80's Sister(s) Family Medical History: Cancer Son(s) Family Medical History: No Reported History Daughter(s) Family Medical History: No Reported History General Exam - General Exam Comments Initial Comments: PHYSICAL EXAM: General Impression: Moaning and groaning, alert and oriented 1/3, keeps complaining of her feet being cold HEENT: Normocephalic atraumatic, extra-ocular movements intact, pupils equal and reactive to light bilaterally, dry mucous membranes Cardiovascular: Heart regular rate and rhythm, S1&S2 audible, no murmurs, rubs or gallops Chest: Lungs clear to auscultation bilaterally, no rhonchi, no wheeze, no rales Abdomen: Bowel sounds present, abdomen soft, non-tender, non-distended, no organomegaly Musculoskeletal: Pulses present and equal in all extremities, no peripheral edema Motor: Moves all extremities grossly Neurological: CN II-XII grossly intact, no focal motor or sensory deficits noted Skin: Intact with no visualized rashes Limitations: altered mental status Course Vital Signs 08/15/18 08/15/18 08/15/18 12:56 16:26 16:34 Temperature 97.7 F Pulse Rate 52 L 68 60 Respiratory 18 Rate Blood Pressure 163/97 O2 Sat by Pulse 96 Oximetry 08/15/18 08/15/18 16:35 16:50 Temperature Pulse Rate 60 68 Respiratory Rate Blood Pressure O2 Sat by Pulse Oximetry Medical Decision Making - Medical Decision Making ED course: 88-year-old female multiple comorbidities presents with altered mental status a day. Vital signs upon arrival shows heart rate of 52, respiratory signs within normal limits. Patient's satting 96 on 2 L nasal cannula. Clinical presentation is consistent with acute delirium. Laboratory evaluation obtained. Leukocytosis of 16.8. Hemoglobin of 10.1. Platelets of 80. Coag panel shows INR 3.3. Fibrinogen level CXCIV. Potassium 6.6. There is mild gap acidosis with a bicarb of 15 and gap of 18. Creatinine of 5.12. Glucose of 72. Lactic acidosis of 7.7. Troponin 1.6. Patient has a lipase of 2126. Urinalysis shows 10 white blood cells. Epogen drug screen is negative. Brain CT shows no acute processes. Abdominal x-ray shows nonspecific bowel gas pattern. Patient does not have a gallbladder. There is however suspicion of ascending cholangitis. Chest x-ray shows pulmonary venous hypertension or interstitial edema. Patient is mildly cracking on auscultation of the lungs. Given elevated potassium, findings of a gag, and EKG changes patient given hyperkalemia cocktail including insulin, calcium, sodium bicarb. There is concern that patient is experiencing findings of sepsis she is given broad-spectrum antibiotics. Discussed patient case with tennis racket repairer who agrees with current care. She will follow-up patient will patient's intensive care unit. Patient is to large bore IVs placed peripherally. Patient is normotensive. She reevaluated with improvement of mentation. EKG Interpretation: A 12 lead EKG was obtained. It was interpreted by myself and attending physician. There is a P wave before every QRS complex. Rate is 53. Rhythm is us bradycardia, QRS 110, QTc 43. QT is not prolonged. No ST segment depression or elevation. This EKG was compared to a previous EKG that was obtained on 2016 and showed no significant change. Overall, this EKG is unremarkable - Lab Data Result diagrams: 08/15/18 15:00 08/15/18 15:00 Lab Results 08/15/18 08/15/18 08/15/18 Range/Units 12:48 12:48 12:48 WBC (3.8-10.6) k/uL RBC (3.80-5.40) m/uL Hgb (11.4-16.0) gm/dL Hct (34.0-46.0) % MCV (80.0-100.0) fL MCH (25.0-35.0) pg MCHC (31.0-37.0) g/dL RDW (11.5-15.5) % Plt Count (150-450) k/uL Neutrophils % % Lymphocytes % % Monocytes % % Eosinophils % % Basophils % % Neutrophils # (1.3-7.7) k/uL Lymphocytes # (1.0-4.8) k/uL Monocytes # (0-1.0) k/uL Eosinophils # (0-0.7) k/uL Basophils # (0-0.2) k/uL Toxic Granulation Polychromasia Hypochromasia Anisocytosis Macrocytosis PT 29.2 H (9.0-12.0) sec INR 3.3 H (<1.2) APTT 28.3 (22.0-30.0) sec Fibrinogen (200-500) mg/dL Sodium (137-145) mmol/L Potassium (3.5-5.1) mmol/L Chloride (98-107) mmol/L Carbon Dioxide (22-30) mmol/L Anion Gap mmol/L BUN (7-17) mg/dL Creatinine (0.52-1.04) mg/dL Est GFR (CKD-EPI)AfAm (>60 ml/min/1.73 sqM) Est GFR (CKD-EPI)NonAf (>60 ml/min/1.73 sqM) Glucose (74-99) mg/dL POC Glucose (mg/dL) (75-99) mg/dL POC Glu Placement Manager ID Lactic Ac Sepsis Rflx Plasma Lactic Acid Jon 7.7 H* (0.7-2.0) mmol/L Calcium (8.4-10.2) mg/dL Total Bilirubin (0.2-1.3) mg/dL AST (14-36) U/L ALT (9-52) U/L Alkaline Phosphatase (38-126) U/L Total Creatine Kinase 2116 H* (30-135) U/L CK-MB (CK-2) 24.9 H (0.0-2.4) ng/mL CK-MB (CK-2) Rel Index Troponin I 1.660 H* (0.000-0.034) ng/mL Total Protein (6.3-8.2) g/dL Albumin (3.5-5.0) g/dL Lipase (23-300) U/L Urine Color Urine Appearance (Clear) Urine pH (5.0-8.0) Ur Specific [place] (1.001-1.035) Urine Protein (Negative) Urine Glucose (UA) (Negative) Urine Ketones (Negative) Urine Blood (Negative) Urine Nitrite (Negative) Urine Bilirubin (Negative) Urine Urobilinogen (<2.0) mg/dL Ur Leukocyte Esterase (Negative) Urine WBC (0-5) /hpf Ur Squamous Epith Cells (0-4) /hpf Amorphous Sediment (None) /hpf Urine Mucus (None) /hpf Urine Opiates Screen (NotDetected) Ur Oxycodone Screen (NotDetected) Urine Methadone Screen (NotDetected) Ur Propoxyphene Screen (NotDetected) Ur Barbiturates Screen (NotDetected) U Tricyclic Antidepress (NotDetected) Ur Phencyclidine Scrn (NotDetected) Ur Amphetamines Screen (NotDetected) U Methamphetamines Scrn (NotDetected) U Benzodiazepines Scrn (NotDetected) Urine Cocaine Screen (NotDetected) U Marijuana (THC) Screen (NotDetected) 08/15/18 08/15/18 08/15/18 Range/Units 12:48 12:53 13:57 WBC (3.8-10.6) k/uL RBC (3.80-5.40) m/uL Hgb (11.4-16.0) gm/dL Hct (34.0-46.0) % MCV (80.0-100.0) fL MCH (25.0-35.0) pg MCHC (31.0-37.0) g/dL RDW (11.5-15.5) % Plt Count (150-450) k/uL Neutrophils % % Lymphocytes % % Monocytes % % Eosinophils % % Basophils % % Neutrophils # (1.3-7.7) k/uL Lymphocytes # (1.0-4.8) k/uL Monocytes # (0-1.0) k/uL Eosinophils # (0-0.7) k/uL Basophils # (0-0.2) k/uL Toxic Granulation Polychromasia Hypochromasia Anisocytosis Macrocytosis PT (9.0-12.0) sec INR (<1.2) APTT (22.0-30.0) sec Fibrinogen 194 L (200-500) mg/dL Sodium (137-145) mmol/L Potassium (3.5-5.1) mmol/L Chloride (98-107) mmol/L Carbon Dioxide (22-30) mmol/L Anion Gap mmol/L BUN (7-17) mg/dL Creatinine (0.52-1.04) mg/dL Est GFR (CKD-EPI)AfAm (>60 ml/min/1.73 sqM) Est GFR (CKD-EPI)NonAf (>60 ml/min/1.73 sqM) Glucose (74-99) mg/dL POC Glucose (mg/dL) 72 L (75-99) mg/dL POC Glu Placement Manager Karena Paez Lactic Ac Sepsis Rflx Plasma Lactic Acid Jon (0.7-2.0) mmol/L Calcium (8.4-10.2) mg/dL Total Bilirubin (0.2-1.3) mg/dL AST (14-36) U/L ALT (9-52) U/L Alkaline Phosphatase (38-126) U/L Total Creatine Kinase (30-135) U/L CK-MB (CK-2) (0.0-2.4) ng/mL CK-MB (CK-2) Rel Index Troponin I (0.000-0.034) ng/mL Total Protein (6.3-8.2) g/dL Albumin (3.5-5.0) g/dL Lipase (23-300) U/L Urine Color Yellow Urine Appearance Cloudy H (Clear) Urine pH 5.5 (5.0-8.0) Ur Specific [place] 1.014 (1.001-1.035) Urine Protein 2+ H (Negative) Urine Glucose (UA) Negative (Negative) Urine Ketones Negative (Negative) Urine Blood Moderate H (Negative) Urine Nitrite Negative (Negative) Urine Bilirubin Negative (Negative) Urine Urobilinogen <2.0 (<2.0) mg/dL Ur Leukocyte Esterase Negative (Negative) Urine WBC 10 H (0-5) /hpf Ur Squamous Epith Cells 1 (0-4) /hpf Amorphous Sediment Rare H (None) /hpf Urine Mucus Rare H (None) /hpf Urine Opiates Screen Not Detected (NotDetected) Ur Oxycodone Screen Not Detected (NotDetected) Urine Methadone Screen Not Detected (NotDetected) Ur Propoxyphene Screen Not Detected (NotDetected) Ur Barbiturates Screen Not Detected (NotDetected) U Tricyclic Antidepress Not Detected (NotDetected) Ur Phencyclidine Scrn Not Detected (NotDetected) Ur Amphetamines Screen Not Detected (NotDetected) U Methamphetamines Scrn Not Detected (NotDetected) U Benzodiazepines Scrn Not Detected (NotDetected) Urine Cocaine Screen Not Detected (NotDetected) U Marijuana (THC) Screen Not Detected (NotDetected) 08/15/18 08/15/18 08/15/18 Range/Units 14:23 15:00 15:00 WBC 16.8 H (3.8-10.6) k/uL RBC 3.25 L (3.80-5.40) m/uL Hgb 10.1 L (11.4-16.0) gm/dL Hct 32.4 L (34.0-46.0) % MCV 99.8 (80.0-100.0) fL MCH 31.0 (25.0-35.0) pg MCHC 31.0 (31.0-37.0) g/dL RDW 17.5 H (11.5-15.5) % Plt Count 80 L (150-450) k/uL Neutrophils % 89 % Lymphocytes % 4 % Monocytes % 6 % Eosinophils % 0 % Basophils % 0 % Neutrophils # 15.0 H (1.3-7.7) k/uL Lymphocytes # 0.7 L (1.0-4.8) k/uL Monocytes # 1.0 (0-1.0) k/uL Eosinophils # 0.0 (0-0.7) k/uL Basophils # 0.0 (0-0.2) k/uL Toxic Granulation Present Polychromasia Present Hypochromasia Slight Anisocytosis Slight Macrocytosis Slight PT (9.0-12.0) sec INR (<1.2) APTT (22.0-30.0) sec Fibrinogen (200-500) mg/dL Sodium 139 (137-145) mmol/L Potassium 6.6 H* (3.5-5.1) mmol/L Chloride 106 (98-107) mmol/L Carbon Dioxide 15 L (22-30) mmol/L Anion Gap 18 mmol/L BUN 97 H (7-17) mg/dL Creatinine 5.12 H (0.52-1.04) mg/dL Est GFR (CKD-EPI)AfAm 8 (>60 ml/min/1.73 sqM) Est GFR (CKD-EPI)NonAf 7 (>60 ml/min/1.73 sqM) Glucose 144 H (74-99) mg/dL POC Glucose (mg/dL) (75-99) mg/dL POC Glu Placement Manager ID Lactic Ac Sepsis Rflx Y Plasma Lactic Acid Jon (0.7-2.0) mmol/L Calcium 9.7 (8.4-10.2) mg/dL Total Bilirubin 1.4 H (0.2-1.3) mg/dL AST 5684 H (14-36) U/L ALT 3170 H (9-52) U/L Alkaline Phosphatase 108 (38-126) U/L Total Creatine Kinase (30-135) U/L CK-MB (CK-2) (0.0-2.4) ng/mL CK-MB (CK-2) Rel Index Troponin I (0.000-0.034) ng/mL Total Protein 5.9 L (6.3-8.2) g/dL Albumin 3.5 (3.5-5.0) g/dL Lipase 2126 H (23-300) U/L Urine Color Urine Appearance (Clear) Urine pH (5.0-8.0) Ur Specific [place] (1.001-1.035) Urine Protein (Negative) Urine Glucose (UA) (Negative) Urine Ketones (Negative) Urine Blood (Negative) Urine Nitrite (Negative) Urine Bilirubin (Negative) Urine Urobilinogen (<2.0) mg/dL Ur Leukocyte Esterase (Negative) Urine WBC (0-5) /hpf Ur Squamous Epith Cells (0-4) /hpf Amorphous Sediment (None) /hpf Urine Mucus (None) /hpf Urine Opiates Screen (NotDetected) Ur Oxycodone Screen (NotDetected) Urine Methadone Screen (NotDetected) Ur Propoxyphene Screen (NotDetected) Ur Barbiturates Screen (NotDetected) U Tricyclic Antidepress (NotDetected) Ur Phencyclidine Scrn (NotDetected) Ur Amphetamines Screen (NotDetected) U Methamphetamines Scrn (NotDetected) U Benzodiazepines Scrn (NotDetected) Urine Cocaine Screen (NotDetected) U Marijuana (THC) Screen (NotDetected) Critical Care Time Critical Care Time: Yes (30) Disposition Clinical Impression: Altered mental status, ERIK (acute kidney injury), Rhabdomyolysis, Dehydration Disposition: ADMITTED IP TO THIS [facility] Condition: Critical Referrals: Rikki Leong MD [Primary Care Provider] - 1-2 days Decision Time: 18:49
[2018-08-15 13:52] LABS: INR 3.3 (<1.2); Partial Thromboplastin Time 28.3 sec (22.0-30.0); Prothrombin Time 29.2 sec (9.0-12.0)
[2018-08-15 14:15] LABS: Creatine Kinase MB 24.9 ng/mL (0.0-2.4)
[2018-08-15 14:22] LABS: Amphetamine Screen,Urine Not Detected (NotDetected); Barbiturate Screen,Urine Not Detected (NotDetected); Benzodiazepines Screen,Urine Not Detected (NotDetected); Cocaine Screen,Urine Not Detected (NotDetected); Methadone Screen, Urine Not Detected (NotDetected); Opiate Screen,Urine Not Detected (NotDetected); Oxycodone Screen, Urine Not Detected (NotDetected); Phencyclidine Screen,Urine Not Detected (NotDetected); Tricyclic Antidepressant,Urine Not Detected (NotDetected); Urn Cannabinoid Scrn Not Detected (NotDetected)
[2018-08-15 14:22] LABS: Troponin I 1.66 ng/mL (0.000-0.034)
[2018-08-15 14:24] LABS: Amorphous Sediment,Urine Rare /hpf; Appearance,Urine Cloudy (Clear); Bilirubin,Urine Negative (Negative); Blood,Urine Moderate (Negative); Color,Urine Yellow; Glucose,Urine (UA) Negative (Negative); Ketones,Urine Negative (Negative); Leukocyte Esterase,Urine Negative (Negative); Mucus,Urine Rare /hpf; Nitrite,Urine Negative (Negative); PH, Urine 5.5 (5.0-8.0); Protein,Urine 2+ (Negative); Specific Gravity,Urine 1.014 (1.001-1.035); Squamous Epithelial Cell,Urine 1 /hpf (0-4); Urobilinogen,Urine <2.0 mg/dL (<2.0); WBC,Urine 10 /hpf (0-5)
[2018-08-15] MEDS ORDERED: SODIUM CHLORIDE 0.9% 500 ML IV STA (14:24)
--- NOTE | 2018-08-15 14:47 | XR ---
Abdomen HISTORY: Altered mental status and pain Frontal view of the abdomen submitted and correlated to CT abdomen pelvis 03/21/2018 There is a scoliotic curvature to the lumbar spine, degenerative disc changes are present. Dense vasc ular calcifications are present, injection granuloma over the right gluteal region. No evident bowel obstruction or pneumoperitoneum. Surgical clips present right upper quadrant. Lung bases show interst itial changes. IMPRESSION: Nonspecific bowel gas pattern.
--- NOTE | 2018-08-15 14:50 | XR ---
EXAMINATION TYPE: XR chest 2V DATE OF EXAM: 08/15/2018 COMPARISON: Prior chest x-ray 09/27/2015 HISTORY: Altered mental status, abnormal chest x-ray TECHNIQUE: Frontal and lateral views of the chest are obtained. FINDINGS: Pleural parenchymal changes are similar to prior exam. Interstitium is increased. There is no focal air space opacity, pleural effusion, or pneumothorax seen. The cardiac silhouette size is e nlarged, stable, appearance may be accentuated by rotation. The osseous structures are intact. IMPRESSION: Interstitial lung disease. Correlate to exclude pulmonary venous hypertension and inters titial edema.
--- NOTE | 2018-08-15 14:53 | CT ---
EXAMINATION TYPE: CT brain wo con DATE OF EXAM: 08/15/2018 COMPARISON: 04/19/2013 HISTORY: Poor historian. Altered mental status. CT DLP: 1176.4 mGycm Automated exposure control for dose reduction was used. TECHNIQUE: CT scan of the head is performed without contrast. FINDINGS: There is no acute intracranial hemorrhage or midline shift identified. There is diffuse v entricular and sulcal prominence consistent with diffuse age-related cerebral atrophy. There is low- attenuation in the periventricular white matter consistent with chronic small vessel ischemic change. Mucosal thickening is seen within the sphenoid sinus. The globes are intact and the remaining visua lized sinuses are clear. IMPRESSION: No acute intracranial hemorrhage or midline shift. There is diffuse age-related cerebra l atrophy and chronic small vessel ischemic change noted.
[2018-08-15 15:33] LABS: Albumin 3.5 g/dL (3.5-5.0); Calcium 9.7 mg/dL (8.4-10.2); Total Bilirubin 1.4 mg/dL (0.2-1.3); Total Protein 5.9 g/dL (6.3-8.2)
[2018-08-15 15:43] LABS: Anisocytosis Slight; Basophils % (A) 0 %; Eosinophils % (A) 0 %; HCT 32.4 % (34.0-46.0); HGB 10.1 gm/dL (11.4-16.0); Hypochromasia Slight; Lymphocytes # (A) 0.7 k/uL (1.0-4.8); Lymphocytes % (A) 4 %; MCV 99.8 fL (80.0-100.0); Macrocytosis Slight; Mean Platelet Volume 9.4; Monocytes % (A) 6 %; Neutrophils % (A) 89 %; RBC 3.25 m/uL (3.80-5.40); RDW 17.5 % (11.5-15.5); WBC 16.8 k/uL (3.8-10.6)
[2018-08-15] MEDS ORDERED: CEFEPIME 2 GM in SODIUM CHLORIDE 0.9% 50 ML IVPB STA (15:57)
[2018-08-15] MEDS ORDERED: VANCOMYCIN 1,250 MG in SODIUM CHLORIDE 0.9% 250 ML IVPB STA (16:04)
[2018-08-15] MEDS ORDERED: VANCOMYCIN IV PER PHARMACY 1 EACH MISC MISCELLANE PRN (16:06)
[2018-08-15 16:08] LABS: Potassium 6.6 mmol/L (3.5-5.1)
[2018-08-15] MEDS ORDERED: ALBUTEROL NEBULIZED 2.5 MG/3 ML INHALATION STA (16:12)
[2018-08-15] MEDS ORDERED: INSULIN REGULAR 100 UNIT/ML VIAL IV ONE (16:13)
[2018-08-15] MEDS ORDERED: DEXTROSE 50%-WATER 50 ML SYRINGE IVP STA (16:13)
[2018-08-15] MEDS ORDERED: CALCIUM GLUCONATE 1,000 MG in SODIUM CHLORIDE 0.9% 100 ML IVPB ONE (16:30)
[2018-08-15 16:43] LABS: Platelet Count 80 k/uL (150-450)
[2018-08-15 16:44] LABS: Polychromasia Present; Toxic Granulation Present
[2018-08-15] MEDS ORDERED: SODIUM BICARB 8.4% 50 ML SYR (1 MEQ/ML) IV ONE (16:48)
[2018-08-15] MEDS ORDERED: PHYTONADIONE 10 MG in SODIUM CHLORIDE 0.9% 50 ML IVPB STA (17:01)
[2018-08-15] MEDS ORDERED: metroNIDAZOLE-NS PMX 500 MG in SALINE 1 100ML.BAG IVPB STA (17:08)
[2018-08-15] MEDS ORDERED: SODIUM POLYSTYRENE SULFONATE 15 GM/60 ML BOTTLE PO STA (17:14)
[2018-08-15] MEDS ORDERED: NALOXONE 0.4 MG/ML 1 ML VIAL IV PRN (17:28)
[2018-08-15] MEDS: DEXTROSE 5%-0.9% NACL 1,000 ML IV SCH ×2 (20:02→22:17)
[2018-08-15 20:32] LABS: Glucose,Whole Blood 69 mg/dL (75-99)
--- NOTE | 2018-08-15 21:55 | CONS ---
CONSULTATION REASON FOR CONSULT: Renal failure. HISTORY OF PRESENT ILLNESS: Patient is an 88-year-old female with a history of CKD stage 4. The patient was being followed at [facility] and according to her daughter renal function had been stable on her last visit about a month ago. The patient's family is not aware of her baseline creatinine. REVIEW OF LABS: Reveals a previous creatinine of about 3.4 and 3.1 in 2016 and 2017. Patient was admitted to the hospital with mental status changes. She was found to have a urinary tract infection and is currently maintained on antibiotics. Blood pressure has not been low. Serum potassium was elevated at 6.6 mEq/L. CO2 is 15. Lactic acid was elevated at 7.8. There is no history of fever, chills, or abdominal pain. No chest pain, cough. PAST MEDICAL HISTORY: CKD stage 4, most likely secondary to nephrosclerosis, dyslipidemia, hypertension, osteoarthritis, coronary artery disease with previous history of non ST elevation myocardial infarction. PAST SURGICAL HISTORY: Cholecystectomy, tonsillectomy, bilateral total knee arthroplasty, bilateral cataract surgery. Right carpal tunnel release. Colonoscopy. SOCIAL HISTORY: There is no history of drug abuse, smoking, or alcohol abuse. MEDICATIONS: Medications at home prior to admission included Synthroid, Crestor, vitamin D3, Zyloprim, aspirin, Pepcid, Toprol, Wellbutrin, Lasix, Ultram, vitamin D3. EXAMINATION: The patient is currently comfortable. She is not in acute distress. She is confused. Blood pressure was 121/88, heart rate 59 per minute. She is afebrile. Examination of the heart S1, S2. Examination of the lungs bilateral breath sounds are heard. Abdomen is soft, nontender. Examination of lower extremities shows no significant edema. NAPHTHALENE OPERATOR exam shows patient is moving all 4 extremities, but she is confused. LABORATORY DATA: Labs show sodium 139, potassium 6.6, chloride 106, CO2 is 15, BUN 97, serum creatinine 5.12. Lactic acid 7.8, AST 5684. ALT 3170, lipase 2126. UA shows 2+ protein, moderate blood. ASSESSMENT: 1. Acute kidney injury, acute tubular necrosis currently nonoliguric. The patient has an indwelling Crespo catheter. She is not on any nephrotoxic medications. Continue with the antibiotics. Continue with IV fluids and repeat labs in a.m. Check ultrasound of the kidneys. 2. Hyperkalemia associated with acute kidney injury, metabolic acidosis, status post IV treatment. We will repeat another set of electrolytes and continue with bicarb drip. 3. Metabolic acidosis, anion gap secondary to renal failure, and lactic acidosis, currently maintained on bicarb drip. 4. Elevated liver enzymes, currently off of statins. Check ultrasound of the abdomen to rule out obstructive etiology. 5. Acute pancreatitis, rule out biliary stone. 6. Altered mentation secondary to renal failure and possible underlying infection. 7. CKD stage 4, etiology not known. The patient does have proteinuria and she has no previous history of diabetes. She will need another UA. PLAN: Continue bicarb drip. Repeat electrolytes. Check imaging of the abdomen to rule out biliary stone. Hold off on statins. I would avoid continued use of vancomycin given the renal failure unless absolutely indicated. We will need to repeat a UA down the road. The patient wishes to follow up with Nephrology in [place]. Thank you for this consultation. We will continue to follow the patient with you during hospitalization. MMODL / IJN: [id number] /
[2018-08-15] MEDS: DEXTROSE 5% IN WATER 1,000 ML with SODIUM BICARB (1 MEQ/ML) 100 ML IV SCH (22:17)
[2018-08-15 23:31] LABS: Glucose,Whole Blood 137 mg/dL (75-99)
[2018-08-15] MEDS: SODIUM CHLORIDE 0.9% 1,000 ML IV SCH (23:35)
[2018-08-15] MEDS ORDERED: HALOPERIDOL LACTATE 5 MG/ML 1 ML VIAL ONE (23:35)
[2018-08-15] MEDS: HALOPERIDOL LACTATE 5 MG/ML 1 ML VIAL IVP PRN (23:49)
--- NOTE | 2018-08-16 00:54 | US ---
EXAMINATION TYPE: US abdomen complete DATE OF EXAM: 08/15/2018 COMPARISON: NONE CLINICAL HISTORY: pancreatitis. EXAM MEASUREMENTS: Liver Length: 12.4 cm Gallbladder Wall: Surgically absent CBD: 0.6 cm Spleen: 8.2 cm Right Kidney: 6.8 x 4.2 x 3.1cm Left Kidney: 5.3 x 3.0 x 3.8 cm Pancreas: Obscured by bowel gas Liver: very limited visualization Gallbladder: Surgically absent Evidence for sonographic Galeano's sign: no CBD: limited view Spleen: very limited visualization, wnl as visualized Right Kidney: very limited visualization, wnl as visualized, lower pole obscured by bowel gas, measu rement may be inaccurate Left Kidney: very limited visualization, measurement may be inaccurate Upper IVC: very limited visualization, wnl as visualized Abd Aorta: partially obscured by bowel gas, portions visualized wnl Patient thrashing and moving and yelling throughout exam. Non-diagnotic study. Study could be repeate d when patient is calmer. . IMPRESSION: exam was limited due to patient motion. As best as one can tell the liver shows no discrete mass. Anthony e ducts are not dilated. There was no evidence of hydronephrosis. There is no ascites. There is no abdominal aortic aneurysm.
[2018-08-16] MEDS: HALOPERIDOL LACTATE 5 MG/ML 1 ML VIAL IVP PRN ×2 (02:54→08:21)
[2018-08-16] MEDS: DEXTROSE 5%-0.9% NACL 1,000 ML IV SCH (03:59)
[2018-08-16] MEDS: DEXTROSE 5% IN WATER 1,000 ML with SODIUM BICARB (1 MEQ/ML) 100 ML IV SCH ×2 (04:02→16:00)
[2018-08-16 05:20] LABS: INR 4.2 (<1.2); Partial Thromboplastin Time 39.1 sec (22.0-30.0); Prothrombin Time 37.8 sec (9.0-12.0)
[2018-08-16 05:23] LABS: Anisocytosis Slight; Basophils % (A) 0 %; Eosinophils % (A) 0 %; HCT 31.9 % (34.0-46.0); HGB 9.6 gm/dL (11.4-16.0); Hypochromasia Marked; Lymphocytes # (A) 0.6 k/uL (1.0-4.8); Lymphocytes % (A) 3 %; MCHC 30.2 g/dL (31.0-37.0); MCV 102.6 fL (80.0-100.0); Macrocytosis Moderate; Mean Platelet Volume 9.6; Monocytes # (A) 0.9 k/uL (0-1.0); Monocytes % (A) 5 %; Neutrophils # (A) 15.4 k/uL (1.3-7.7); Neutrophils % (A) 90 %; RBC 3.11 m/uL (3.80-5.40); RDW 18.1 % (11.5-15.5); WBC 17.1 k/uL (3.8-10.6)
[2018-08-16 05:26] LABS: Platelet Count 57 k/uL (150-450)
[2018-08-16 05:33] LABS: Calcium 8.2 mg/dL (8.4-10.2); Total Bilirubin 1.7 mg/dL (0.2-1.3); Total Protein 5.4 g/dL (6.3-8.2)
[2018-08-16 05:47] LABS: Glucose,Whole Blood 111 mg/dL (75-99)
[2018-08-16 05:56] LABS: Potassium 6.3 mmol/L (3.5-5.1)
[2018-08-16] MEDS ORDERED: PHYTONADIONE 5 MG in SODIUM CHLORIDE 0.9% 50 ML IVPB STA (06:06)
[2018-08-16] MEDS ORDERED: SODIUM POLYSTYRENE SULFONATE 15 GM/60 ML BOTTLE NG-TUBE STA (06:06)
[2018-08-16] MEDS: SODIUM BICARB 8.4% 50 ML SYR (1 MEQ/ML) IV STA ×2 (06:18→06:19)
--- NOTE | 2018-08-16 07:40 | XR ---
EXAMINATION TYPE: XR chest 1V DATE OF EXAM: 08/16/2018 CLINICAL HISTORY: Difficulty breathing progress study. Weakness and altered mental status. TECHNIQUE: Single AP portable semiupright view of the chest is obtained. COMPARISON: Chest x-ray from one day earlier FINDINGS: There is chronic parenchymal change without suspicious focal airspace opacity or pneumotho rax seen bilaterally. Suspect new tiny bilateral pleural effusions. There is redemonstration of cardi omegaly with atherosclerotic and ectatic thoracic aorta. Osseous structures are demineralized. IMPRESSION: Chronic parenchymal change and cardiomegaly redemonstrated, new tiny bilateral pleural ef fusions are suspected.
[2018-08-16] MEDS ORDERED: PANTOPRAZOLE 40 MG/10 ML VIAL IV SCH (09:00)
--- NOTE | 2018-08-16 12:27 | P.PN ---
Subjective Progress Note Date: 08/16/18 Seen and examined for the follow-up of acute kidney injury. She has history of CKD4. Currently confused family at bedside. She has high potassium of 6.3 improved from 6.6. Oliguria with minimal urine output. Objective - Vital Signs Vital signs: Vital Signs Temp 97.6 F 08/16/18 08:00 Pulse 64 08/16/18 10:00 Resp 16 08/16/18 10:00 BP 122/79 08/16/18 10:00 Pulse Ox 96 08/16/18 10:00 Intake & Output 08/15/18 08/16/18 08/16/18 18:59 06:59 18:59 Intake Total 1940 540 Output Total 51 20 Balance 1889 520 Weight 65.363 kg 55 kg Intake: IV 100 400 Dextrose 5% in Water 1, 100 400 000 ml @ 100 mls/hr IV . Q11H DALILA with Sodium Bicarb (1 Meq/ml) 100 ml Rx#:[id number] Intake, IV Titration 1840 140 Amount Dextrose 5%-0.9% NaCl 1, 800 000 ml @ 80 mls/hr IV . [id number] DALILA Rx#:[id number] Phytonadione 5 mg In 50 100 Sodium Chloride 0.9% 50 ml @ 100 mls/hr IVPB ONCE STA Rx#:[id number] Sodium Chloride 0.9% 500 640 40 ml 500 ml @ 999 mls/hr IV .Q31M ONE Rx#:[id number] Vancomycin 1,250 mg In 250 Sodium Chloride 0.9% 250 ml @ 125 mls/hr IVPB ONCE ONE Rx#:[id number] metroNIDAZOLE-NS PMX 500 100 mg In Saline 1 100ml.bag @ 100 mls/hr IVPB ONCE STA Rx#:[id number] Output: Urine 51 20 - Exam Nonverbal S1-S2 heard Lungs clear No edema - Labs CBC & Chem 7: 08/16/18 04:31 08/16/18 04:31 Labs: Abnormal Lab Results - Last 24 Hours (Table) 08/15/18 08/15/18 08/15/18 Range/Units 12:48 12:48 12:48 WBC (3.8-10.6) k/uL RBC (3.80-5.40) m/uL Hgb (11.4-16.0) gm/dL Hct (34.0-46.0) % MCV (80.0-100.0) fL MCHC (31.0-37.0) g/dL RDW (11.5-15.5) % Plt Count (150-450) k/uL Neutrophils # (1.3-7.7) k/uL Lymphocytes # (1.0-4.8) k/uL PT 29.2 H (9.0-12.0) sec INR 3.3 H (<1.2) APTT (22.0-30.0) sec Fibrinogen (200-500) mg/dL Potassium (3.5-5.1) mmol/L Chloride (98-107) mmol/L Carbon Dioxide (22-30) mmol/L BUN (7-17) mg/dL Creatinine (0.52-1.04) mg/dL Glucose (74-99) mg/dL POC Glucose (mg/dL) (75-99) mg/dL Plasma Lactic Acid Jon 7.7 H* (0.7-2.0) mmol/L Calcium (8.4-10.2) mg/dL Total Bilirubin (0.2-1.3) mg/dL AST (14-36) U/L ALT (9-52) U/L Total Creatine Kinase 2116 H* (30-135) U/L CK-MB (CK-2) 24.9 H (0.0-2.4) ng/mL Troponin I 1.660 H* (0.000-0.034) ng/mL Total Protein (6.3-8.2) g/dL Albumin (3.5-5.0) g/dL Lipase (23-300) U/L Urine Appearance (Clear) Urine Protein (Negative) Urine Blood (Negative) Urine WBC (0-5) /hpf Amorphous Sediment (None) /hpf Urine Mucus (None) /hpf 08/15/18 08/15/18 08/15/18 Range/Units 12:48 12:53 13:57 WBC (3.8-10.6) k/uL RBC (3.80-5.40) m/uL Hgb (11.4-16.0) gm/dL Hct (34.0-46.0) % MCV (80.0-100.0) fL MCHC (31.0-37.0) g/dL RDW (11.5-15.5) % Plt Count (150-450) k/uL Neutrophils # (1.3-7.7) k/uL Lymphocytes # (1.0-4.8) k/uL PT (9.0-12.0) sec INR (<1.2) APTT (22.0-30.0) sec Fibrinogen 194 L (200-500) mg/dL Potassium (3.5-5.1) mmol/L Chloride (98-107) mmol/L Carbon Dioxide (22-30) mmol/L BUN (7-17) mg/dL Creatinine (0.52-1.04) mg/dL Glucose (74-99) mg/dL POC Glucose (mg/dL) 72 L (75-99) mg/dL Plasma Lactic Acid Jon (0.7-2.0) mmol/L Calcium (8.4-10.2) mg/dL Total Bilirubin (0.2-1.3) mg/dL AST (14-36) U/L ALT (9-52) U/L Total Creatine Kinase (30-135) U/L CK-MB (CK-2) (0.0-2.4) ng/mL Troponin I (0.000-0.034) ng/mL Total Protein (6.3-8.2) g/dL Albumin (3.5-5.0) g/dL Lipase (23-300) U/L Urine Appearance Cloudy H (Clear) Urine Protein 2+ H (Negative) Urine Blood Moderate H (Negative) Urine WBC 10 H (0-5) /hpf Amorphous Sediment Rare H (None) /hpf Urine Mucus Rare H (None) /hpf 08/15/18 08/15/18 08/15/18 Range/Units 15:00 15:00 18:03 WBC 16.8 H (3.8-10.6) k/uL RBC 3.25 L (3.80-5.40) m/uL Hgb 10.1 L (11.4-16.0) gm/dL Hct 32.4 L (34.0-46.0) % MCV (80.0-100.0) fL MCHC (31.0-37.0) g/dL RDW 17.5 H (11.5-15.5) % Plt Count 80 L (150-450) k/uL Neutrophils # 15.0 H (1.3-7.7) k/uL Lymphocytes # 0.7 L (1.0-4.8) k/uL PT (9.0-12.0) sec INR (<1.2) APTT (22.0-30.0) sec Fibrinogen (200-500) mg/dL Potassium 6.6 H* (3.5-5.1) mmol/L Chloride (98-107) mmol/L Carbon Dioxide 15 L (22-30) mmol/L BUN 97 H (7-17) mg/dL Creatinine 5.12 H (0.52-1.04) mg/dL Glucose 144 H (74-99) mg/dL POC Glucose (mg/dL) (75-99) mg/dL Plasma Lactic Acid Jon 7.8 H* (0.7-2.0) mmol/L Calcium (8.4-10.2) mg/dL Total Bilirubin 1.4 H (0.2-1.3) mg/dL AST 5684 H (14-36) U/L ALT 3170 H (9-52) U/L Total Creatine Kinase (30-135) U/L CK-MB (CK-2) (0.0-2.4) ng/mL Troponin I (0.000-0.034) ng/mL Total Protein 5.9 L (6.3-8.2) g/dL Albumin (3.5-5.0) g/dL Lipase 2126 H (23-300) U/L Urine Appearance (Clear) Urine Protein (Negative) Urine Blood (Negative) Urine WBC (0-5) /hpf Amorphous Sediment (None) /hpf Urine Mucus (None) /hpf 08/15/18 08/15/18 08/16/18 Range/Units 20:25 23:30 02:02 WBC (3.8-10.6) k/uL RBC (3.80-5.40) m/uL Hgb (11.4-16.0) gm/dL Hct (34.0-46.0) % MCV (80.0-100.0) fL MCHC (31.0-37.0) g/dL RDW (11.5-15.5) % Plt Count (150-450) k/uL Neutrophils # (1.3-7.7) k/uL Lymphocytes # (1.0-4.8) k/uL PT (9.0-12.0) sec INR (<1.2) APTT (22.0-30.0) sec Fibrinogen (200-500) mg/dL Potassium (3.5-5.1) mmol/L Chloride (98-107) mmol/L Carbon Dioxide (22-30) mmol/L BUN (7-17) mg/dL Creatinine (0.52-1.04) mg/dL Glucose (74-99) mg/dL POC Glucose (mg/dL) 69 L 137 H (75-99) mg/dL Plasma Lactic Acid Jon 8.9 H* (0.7-2.0) mmol/L Calcium (8.4-10.2) mg/dL Total Bilirubin (0.2-1.3) mg/dL AST (14-36) U/L ALT (9-52) U/L Total Creatine Kinase (30-135) U/L CK-MB (CK-2) (0.0-2.4) ng/mL Troponin I (0.000-0.034) ng/mL Total Protein (6.3-8.2) g/dL Albumin (3.5-5.0) g/dL Lipase (23-300) U/L Urine Appearance (Clear) Urine Protein (Negative) Urine Blood (Negative) Urine WBC (0-5) /hpf Amorphous Sediment (None) /hpf Urine Mucus (None) /hpf 08/16/18 08/16/18 08/16/18 Range/Units 04:31 04:31 04:31 WBC 17.1 H (3.8-10.6) k/uL RBC 3.11 L (3.80-5.40) m/uL Hgb 9.6 L (11.4-16.0) gm/dL Hct 31.9 L (34.0-46.0) % MCV 102.6 H (80.0-100.0) fL MCHC 30.2 L (31.0-37.0) g/dL RDW 18.1 H (11.5-15.5) % Plt Count 57 L (150-450) k/uL Neutrophils # 15.4 H (1.3-7.7) k/uL Lymphocytes # 0.6 L (1.0-4.8) k/uL PT 37.8 H (9.0-12.0) sec INR 4.2 H (<1.2) APTT 39.1 H (22.0-30.0) sec Fibrinogen (200-500) mg/dL Potassium 6.3 H* (3.5-5.1) mmol/L Chloride 113 H (98-107) mmol/L Carbon Dioxide 13 L (22-30) mmol/L BUN 100 H (7-17) mg/dL Creatinine 5.23 H (0.52-1.04) mg/dL Glucose 120 H (74-99) mg/dL POC Glucose (mg/dL) (75-99) mg/dL Plasma Lactic Acid Jon (0.7-2.0) mmol/L Calcium 8.2 L (8.4-10.2) mg/dL Total Bilirubin 1.7 H (0.2-1.3) mg/dL AST 5712 H (14-36) U/L ALT 3432 H (9-52) U/L Total Creatine Kinase (30-135) U/L CK-MB (CK-2) (0.0-2.4) ng/mL Troponin I (0.000-0.034) ng/mL Total Protein 5.4 L (6.3-8.2) g/dL Albumin 3.0 L (3.5-5.0) g/dL Lipase (23-300) U/L Urine Appearance (Clear) Urine Protein (Negative) Urine Blood (Negative) Urine WBC (0-5) /hpf Amorphous Sediment (None) /hpf Urine Mucus (None) /hpf 08/16/18 08/16/18 Range/Units 05:46 07:17 WBC (3.8-10.6) k/uL RBC (3.80-5.40) m/uL Hgb (11.4-16.0) gm/dL Hct (34.0-46.0) % MCV (80.0-100.0) fL MCHC (31.0-37.0) g/dL RDW (11.5-15.5) % Plt Count (150-450) k/uL Neutrophils # (1.3-7.7) k/uL Lymphocytes # (1.0-4.8) k/uL PT (9.0-12.0) sec INR (<1.2) APTT (22.0-30.0) sec Fibrinogen (200-500) mg/dL Potassium (3.5-5.1) mmol/L Chloride (98-107) mmol/L Carbon Dioxide (22-30) mmol/L BUN (7-17) mg/dL Creatinine (0.52-1.04) mg/dL Glucose (74-99) mg/dL POC Glucose (mg/dL) 111 H (75-99) mg/dL Plasma Lactic Acid Jon 7.5 H* (0.7-2.0) mmol/L Calcium (8.4-10.2) mg/dL Total Bilirubin (0.2-1.3) mg/dL AST (14-36) U/L ALT (9-52) U/L Total Creatine Kinase (30-135) U/L CK-MB (CK-2) (0.0-2.4) ng/mL Troponin I (0.000-0.034) ng/mL Total Protein (6.3-8.2) g/dL Albumin (3.5-5.0) g/dL Lipase (23-300) U/L Urine Appearance (Clear) Urine Protein (Negative) Urine Blood (Negative) Urine WBC (0-5) /hpf Amorphous Sediment (None) /hpf Urine Mucus (None) /hpf Microbiology - Last 24 Hours (Table) 08/15/18 13:57 Urine Culture - Preliminary Urine,Catheterized Assessment and Plan Assessment: #1 Oliguric acute kidney injury secondary to hemodynamic ATN #2 anion gap metabolic acidosis from lactic acidosis #3 hyperkalemia associated with acute kidney injury and metabolic acidosis #4 transaminitis #5 acute pancreatitis #6 CK D4 to baseline creatinine of 3.1 - 3.4 MG per DL in 2017. Plan: #1 with oliguria, metabolic acidosis and hyperkalemia she needs dialysis. Family still thinking about it. On bicarb drip. #2 treat hyperkalemia medically. Prognosis is guarded. Discussed with the family at bedside that she needs dialysis for her electrolyte abnormalities and oliguria on the other hand her prognosis is guarded with other medical issues. Family wants to rethink about dialysis. Overall she is a very poor candidate for dialysis.
[2018-08-16 13:19] VITALS: BMI 23.6
[2018-08-16] MEDS ORDERED: LORazepam 2 MG/ML INJ IV STA ×2 (14:44→21:10)
[2018-08-16 15:01] LABS: Calcium 6.7 mg/dL (8.4-10.2); Potassium 5.4 mmol/L (3.5-5.1)
[2018-08-16] MEDS ORDERED: VANCOMYCIN 1,250 MG in SODIUM CHLORIDE 0.9% 250 ML IVPB ONE (16:00)
--- NOTE | 2018-08-16 17:11 | CT ---
EXAMINATION TYPE: CT abdomen wo con DATE OF EXAM: 08/16/2018 HISTORY: pancreatitis, pain and abnormal labs. CT DLP: 303.1 mGycm. Automated Exposure Control for Dose Reduction was Utilized. TECHNIQUE: CT scan of the abdomen is performed without oral or IV contrast. COMPARISON: CT abdomen and pelvis March 21, 2018 FINDINGS: Within the limitations of a non-contrast study, the following observations are made. LUNG BASES: There are small to moderate-sized bilateral pleural effusions increased in size from prio r study with associated compressive atelectasis. Cardiomegaly is redemonstrated. There is moderate to severe 3 vessel coronary artery calcification seen which is noted marker for underlying coronary art sindy disease. LIVER/GB: Cholecystectomy clips are redemonstrated. Small amount of perihepatic ascites along superio r and right lateral margin is felt present. PANCREAS: Some diffuse atrophy of pancreas is redemonstrated. No significant surrounding inflammatory change is noted. Slightly suboptimal evaluation without contrast. SPLEEN: New small amount perisplenic ascites is seen along the left superior margin. ADRENALS: Low dense thickening to both adrenal glands favors benign hyperplasia is slightly more prom inent versus prior. KIDNEYS: Cortical thinning in both kidneys is seen. No hydronephrosis is evident bilaterally. BOWEL: Evaluation bowel is suboptimal secondary to lack of enteric contrast. Stomach is poorly disten ded and thus suboptimally evaluated. There is no suspicious small or large bowel dilatation. Mild wal l thickening in the left and transverse colon is seen, finding present product of poor distention. Th ere are some scattered diverticula most prominent in the left colon. LYMPH NODES: No greater than 1cm abdominal lymph nodes are appreciated. OSSEOUS STRUCTURES: Osseous structures are demineralized. Dextroconvex scoliosis is present centered in the mid lumbar spine. There is prominent hemangioma at L1 level. There is moderate multilevel disc space narrowing and vacuum disc phenomenon. Multilevel posterior disc herniations are effacing anter ior thecal sac with prominent lower lumbar levels where there is additional facet arthropathy noted. OTHER: There is severe calcified plaque of aorta extending into pelvic branch vessels. IMPRESSION: Noncontrast CT shows no evidence of complication related to acute pancreatitis. Small to moderate-sized bilateral pleural effusions are increased in size from prior CT. New mild perihepatic and perisplenic ascites is noted. Correlate for fluid overload state.
--- NOTE | 2018-08-16 17:16 | P.CNPUL ---
History of Present Illness Consult date: 08/16/18 Reason for consult: other Chief complaint: Critical care management History of present illness: 88-year-old female who was seen eval reexamined in the ICU this patient is a poor historian due to her arm altered mental status she has multiple comorbidities also has chronic renal failure which is being monitor observe patient has not been feeling well for the last 1-2 days with increased weakness and lethargy as not been eating or drinking patient was brought into the emergency department by daughter who expressed concern about confusion as well as developing hallucination Deep patient has ongoing problems associated with multiple issues and comorbidities including hypothyroidism and dyslipidemia chronic gout hypertension hypertensive cardiovascular disease, off note on arrival was patient was bradycardic with hypertensive emergency heart rate was 6052 and blood pressure 163/97, she had leukocytosis with white cell count over 16,800 along with coagulopathy, patient appeared to have acute anion gap metabolic acidosis related to lactic acidosis which is likely due to poor perfusion oxygenation was stable patient appears to have shock liver and coagulopathy or setting of renal failure with severe hyperkalemia, patient has been managed accordingly Kayexalate couldn't be given orally but given rectally , her white cell count have gone up to 17,000, hemoglobin however remains stable she has significant thrombocytopenia platelet count have dropped down to 57,000 from 80,000, INR has been getting worse with 4.2-3.3 on arrival, patient has been on vitamin K, BUN/creatinine went up to 103/4.88, with GFR of only 8, lactic acid down with fluid resuscitation to 4 from 7.8 both AST and ALP are in 5000 and 3000 range respectively total CK is over 2000 patient appears to have component of acute rhabdomyolysis with acute renal failure on chronic renal failure and severe coagulopathy and shock liver due to severe hypertension urine drug screen is negative urine culture is pending my patient has been evaluated by renal services plan is to undergo hemodialysis would recommend to give 6 bags of FFP while undergoing dialysis catheter Review of Systems ROS unobtainable: due to mental status Past Medical History Past Medical History: Blood Disorder, GERD/Reflux, Hyperlipidemia, Osteoarthritis (OA), Renal Disease, Thyroid Disorder Additional Past Medical History / Comment(s): 09/19/15 Pt presented to [facility] ER with chest pain-tightness anterior aspect of her chest which radiated to her L arm. This began today and has associated SOB. Symptoms improved when she sat down and rested. Pt is admitted with clinical impression of chest pain, unstable angina pectorias, NSTEMI. Other HX: CKD stage IV, hypothyroidism, anemia, sciatica radiating down both legs, UTI's in the past. PT states she was taken off her HTN medication about one year ago. History of Any Multi-Drug Resistant Organisms: None Reported Past Surgical History: Cholecystectomy, Joint Replacement, Orthopedic Surgery, Tonsillectomy Additional Past Surgical History / Comment(s): Bilateral total knee replacements , Bilateral Cataract surgery, Right carpal tunnel release, back injections, colonoscopy-normal. Past Anesthesia/Blood Transfusion Reactions: No Reported Reaction Past Psychological History: Anxiety Additional Psychological History / Comment(s): Pt has a son and grandson who live with her. She uses a cane at times. She drives. She is independent. Smoking Status: Never smoker Past Alcohol Use History: None Reported Past Drug Use History: None Reported - Past Family History Mother Family Medical History: CVA/TIA Additional Family Medical History / Comment(s): Mother lived into her 80's Father Family Medical History: Coronary Artery Disease (CAD) Additional Family Medical History / Comment(s): Father lived into his 80's Sister(s) Family Medical History: Cancer Son(s) Family Medical History: No Reported History Daughter(s) Family Medical History: No Reported History Medications and Allergies Home Medications Medication Instructions Recorded Confirmed Type Levothyroxine Sodium [Synthroid] 75 mcg PO AC-BRKFST 09/24/14 08/15/18 History Rosuvastatin [Crestor] 10 mg PO AC-SUPPER 09/24/14 08/15/18 History Calcium Carbonate/Vitamin D3 1 tab PO AC-SUPPER 12/19/16 08/15/18 History [Caltrate 600 Plus D3 Tablet] Allopurinol [Zyloprim] 100 mg PO AC-BRKFST 04/09/17 08/15/18 History Aspirin EC [Ecotrin Low Dose] 81 mg PO AC-SUPPER 04/09/17 08/15/18 History Famotidine [Pepcid] 20 mg PO AC-BRKFST 04/09/17 08/15/18 History Metoprolol Succinate (ER) [Toprol 50 mg PO AC-SUPPER 04/09/17 08/15/18 History Xl] Cyanocobalamin (Vitamin B-12) 1,000 mcg PO AC-SUPPER 03/21/18 08/15/18 History [Vitamin B-12] buPROPion XL [Wellbutrin Xl] 150 mg PO AC-BRKFST 03/21/18 08/15/18 History Furosemide [Lasix] 40 mg PO MOFR 08/15/18 08/15/18 History Isosorbide Mononitrate ER [Imdur] 60 mg PO AC-BRKFST 08/15/18 08/15/18 History Multivitamins, Thera [Multivitamin 1 tab PO AC-SUPPER 08/15/18 08/15/18 History (formulary)] Vitamin D3(Unknown) 1 tab PO AC-BRKFST 08/15/18 08/15/18 History traMADol HCL [Ultram] 25 mg PO BID PRN 08/15/18 08/15/18 History Allergies Allergy/AdvReac Type Severity Reaction Status Date / Time No Known Allergies Allergy Verified 08/15/18 14:39 Physical Exam Vitals: Vital Signs Temp Pulse Resp BP BP Pulse Ox 08/16/18 15:00 63 10 L 155/82 99 08/16/18 14:30 65 13 155/82 97 08/16/18 14:00 64 20 142/71 100 08/16/18 13:30 62 18 142/71 96 08/16/18 13:00 63 14 146/79 95 08/16/18 12:30 63 13 149/76 97 08/16/18 12:00 96.7 F L 63 11 L 147/80 97 08/16/18 11:30 63 13 143/85 08/16/18 11:00 64 11 L 136/82 08/16/18 10:30 64 20 124/113 08/16/18 10:00 64 16 122/79 96 08/16/18 09:30 64 23 109/92 99 08/16/18 09:00 63 11 L 137/96 98 08/16/18 08:30 64 11 L 143/93 98 08/16/18 08:00 97.6 F 63 12 133/109 97 08/16/18 07:00 63 15 106/88 95 08/16/18 06:00 58 L 6 L 130/57 96 08/16/18 05:00 57 L 23 102/71 08/16/18 04:00 58 L 30 H 112/78 08/16/18 03:00 97.6 F 57 L 20 90/76 08/16/18 02:00 56 L 12 116/45 08/16/18 01:00 58 L 13 127/63 08/16/18 00:00 96.3 F L 57 L 23 139/75 94 L 08/15/18 23:00 56 L 8 L 86/75 08/15/18 22:30 57 L 11 L 123/59 08/15/18 22:00 55 L 11 L 140/115 08/15/18 21:30 55 L 12 115/79 08/15/18 21:00 16 146/82 08/15/18 20:37 96.7 F L 55 L 10 L 08/15/18 20:00 59 L 16 137/82 97 08/15/18 19:30 96.9 F L 16 146/82 96 08/15/18 18:30 144/74 95 08/15/18 18:00 121/88 99 08/15/18 17:30 151/70 98 08/15/18 17:00 158/91 99 Intake and Output 08/16/18 08/16/18 08/16/18 06:59 14:59 22:59 Intake Total 1290 940 100 Output Total 31 20 0 Balance 1259 920 100 Intake: IV 100 800 100 Dextrose 5% in Water 1, 100 800 100 000 ml @ 100 mls/hr IV . Q11H DALILA with Sodium Bicarb (1 Meq/ml) 100 ml Rx#:[id number] Intake, IV Titration 1190 140 Amount Dextrose 5%-0.9% NaCl 1, 560 000 ml @ 80 mls/hr IV . [id number] DALILA Rx#:[id number] Phytonadione 5 mg In 50 100 Sodium Chloride 0.9% 50 ml @ 100 mls/hr IVPB ONCE STA Rx#:[id number] Sodium Chloride 0.9% 500 580 40 ml 500 ml @ 999 mls/hr IV .Q31M ONE Rx#:[id number] Output: Urine 31 20 0 Other: Weight 55 kg 55 kg - Constitutional General appearance: average body habitus, disheveled, mild distress - EENT Eyes: EOMI, PERRLA, poor dentition, normal appearance ENT: hard of hearing Ears: bilateral: normal - Neck Carotids: bilateral: upstroke normal Thyroid: bilateral: normal size - Respiratory Respiratory: bilateral: CTA, diminished - Cardiovascular Heart sounds: normal: S1, S2 - Neurologic Neurologic: CNII-XII intact - Musculoskeletal Musculoskeletal: generalized weakness, strength equal bilaterally Results - Laboratory Findings CBC and BMP: 08/16/18 04:31 08/16/18 14:17 PT/INR, D-dimer PT 37.8 sec (9.0-12.0) H 08/16/18 04:31 INR 4.2 (<1.2) H 08/16/18 04:31 Abnormal lab findings: Abnormal Labs 08/15/18 08/15/18 08/15/18 12:48 12:48 12:48 WBC RBC Hgb Hct MCV MCHC RDW Plt Count Neutrophils # Lymphocytes # PT 29.2 H INR 3.3 H APTT Fibrinogen Potassium Chloride Carbon Dioxide BUN Creatinine Glucose POC Glucose (mg/dL) Plasma Lactic Acid Jon 7.7 H* Calcium Total Bilirubin AST ALT Total Creatine Kinase 2116 H* CK-MB (CK-2) 24.9 H Troponin I 1.660 H* Total Protein Albumin Lipase Urine Appearance Urine Protein Urine Blood Urine WBC Amorphous Sediment Urine Mucus 08/15/18 08/15/18 08/15/18 12:48 12:53 13:57 WBC RBC Hgb Hct MCV MCHC RDW Plt Count Neutrophils # Lymphocytes # PT INR APTT Fibrinogen 194 L Potassium Chloride Carbon Dioxide BUN Creatinine Glucose POC Glucose (mg/dL) 72 L Plasma Lactic Acid Jon Calcium Total Bilirubin AST ALT Total Creatine Kinase CK-MB (CK-2) Troponin I Total Protein Albumin Lipase Urine Appearance Cloudy H Urine Protein 2+ H Urine Blood Moderate H Urine WBC 10 H Amorphous Sediment Rare H Urine Mucus Rare H 08/15/18 08/15/18 08/15/18 15:00 15:00 18:03 WBC 16.8 H RBC 3.25 L Hgb 10.1 L Hct 32.4 L MCV MCHC RDW 17.5 H Plt Count 80 L Neutrophils # 15.0 H Lymphocytes # 0.7 L PT INR APTT Fibrinogen Potassium 6.6 H* Chloride Carbon Dioxide 15 L BUN 97 H Creatinine 5.12 H Glucose 144 H POC Glucose (mg/dL) Plasma Lactic Acid Jon 7.8 H* Calcium Total Bilirubin 1.4 H AST 5684 H ALT 3170 H Total Creatine Kinase CK-MB (CK-2) Troponin I Total Protein 5.9 L Albumin Lipase 2126 H Urine Appearance Urine Protein Urine Blood Urine WBC Amorphous Sediment Urine Mucus 08/15/18 08/15/18 08/16/18 20:25 23:30 02:02 WBC RBC Hgb Hct MCV MCHC RDW Plt Count Neutrophils # Lymphocytes # PT INR APTT Fibrinogen Potassium Chloride Carbon Dioxide BUN Creatinine Glucose POC Glucose (mg/dL) 69 L 137 H Plasma Lactic Acid Jon 8.9 H* Calcium Total Bilirubin AST ALT Total Creatine Kinase CK-MB (CK-2) Troponin I Total Protein Albumin Lipase Urine Appearance Urine Protein Urine Blood Urine WBC Amorphous Sediment Urine Mucus 08/16/18 08/16/18 08/16/18 04:31 04:31 04:31 WBC 17.1 H RBC 3.11 L Hgb 9.6 L Hct 31.9 L MCV 102.6 H MCHC 30.2 L RDW 18.1 H Plt Count 57 L Neutrophils # 15.4 H Lymphocytes # 0.6 L PT 37.8 H INR 4.2 H APTT 39.1 H Fibrinogen Potassium 6.3 H* Chloride 113 H Carbon Dioxide 13 L BUN 100 H Creatinine 5.23 H Glucose 120 H POC Glucose (mg/dL) Plasma Lactic Acid Jon Calcium 8.2 L Total Bilirubin 1.7 H AST 5712 H ALT 3432 H Total Creatine Kinase CK-MB (CK-2) Troponin I Total Protein 5.4 L Albumin 3.0 L Lipase Urine Appearance Urine Protein Urine Blood Urine WBC Amorphous Sediment Urine Mucus 08/16/18 08/16/18 08/16/18 05:46 07:17 14:17 WBC RBC Hgb Hct MCV MCHC RDW Plt Count Neutrophils # Lymphocytes # PT INR APTT Fibrinogen Potassium 5.4 H Chloride Carbon Dioxide BUN 103 H* Creatinine 4.88 H Glucose 408 H POC Glucose (mg/dL) 111 H Plasma Lactic Acid Jon 7.5 H* Calcium 6.7 L Total Bilirubin AST ALT Total Creatine Kinase CK-MB (CK-2) Troponin I Total Protein Albumin Lipase Urine Appearance Urine Protein Urine Blood Urine WBC Amorphous Sediment Urine Mucus 08/16/18 14:17 WBC RBC Hgb Hct MCV MCHC RDW Plt Count Neutrophils # Lymphocytes # PT INR APTT Fibrinogen Potassium Chloride Carbon Dioxide BUN Creatinine Glucose POC Glucose (mg/dL) Plasma Lactic Acid Jon 4.0 H* Calcium Total Bilirubin AST ALT Total Creatine Kinase CK-MB (CK-2) Troponin I Total Protein Albumin Lipase Urine Appearance Urine Protein Urine Blood Urine WBC Amorphous Sediment Urine Mucus - Diagnostic Findings Chest x-ray: report reviewed, image reviewed (Suggestive of prominent interstitium interstitial lung disease, abdominal x-ray is unremarkable the EKG revealed junctional rhythm with left axis deviation Ammann ultrasound of the abdominal to reveal any significant hydronephrosis, repeat chest x-ray performed earlier this morning overall not much change the small pleural effusion cannot be excluded, CT scan of the abdominal and pelvis performed reviewed hardcopy final report however is pending no bowel perforation is seen, lung windows reveal basal atelectasis small effusion no significant pathology has been noted) Assessment and Plan Assessment: Severe profound metabolic acidosis related to lactic acidosis due to intravascular volume depletion and dehydration and acute on chronic renal failure Acute rhabdomyolysis Shock liver with very high liver enzymes Stage V renal failure Altered mental status encephalopathy multifactorial Plan: Continue gentle rehydration Bicarb drip Patient is being planned for hemodialysis Would recommend to give vitamin K daily 10 mg FFP pre-and perioperative period during dialysis catheter placement We will initiate patient on broad-spectrum antibiotics with IV Rocephin Follow-up on urine culture results and reports Overall long-term prognosis poor Time with Patient: Greater than 30 (Critical care time spent over 60 minutes)
--- NOTE | 2018-08-16 18:50 | P.HPIM ---
History of Present Illness H&P Date: 08/16/18 Chief Complaint: Altered mental status This is an 85-year-old female in of Dr. Muller with a previous medical history significant for hypertension and hypertensive perivascular disease, hyperlipidemia, hypothyroidism, chronic kidney disease stage IV, anemia of chronic kidney disease, depression, GERD, last admitted in August 2016 for acute chest pain. Patient was reported to have an ejection fraction 20% with global hypokinesia with possible underlying ischemic cardiomyopathy and valvular heart disease. Patient was also found to have mild troponin anemia, elevated transaminitis. Detailed workup was done during that admission. Hepatitis panel was negative. CMV IgG antibody was reactive Lamont-Mcconnell virus IgG antibody was reactive. Ultrasound of the abdomen showed that the hepatic ascites during that time. Patient also had hematochromatosis workup that was negative. He did have positive ROMERO but negative double-stranded DNA. Complement C3 and C4 levels were low. Patient was transferred to [facility] during that visit. Patient comes in this time with change in mental status for 1 day. According to the daughter bedside patient was having trouble with her lower extremity and was feeling unfelt for the past 1 week. She had some she had sciatica like pain in her lower extremity and was having difficulty walking. She lost appetite and is stopped eating or drinking 2 days ago. Patient noticed patient was moaning and groaning and had some hallucinations. She was brought to the ER had a heart rate of 52, saturating 96% on 2 L. The blood pressure 163/97. Labs obtained suggested a hemoglobin 10.1 leukocytosis 16.8, his potassium 6.6 normal sodium, creatinine of 5.12 patient has CK D stage IV baseline, BUN 97. EKG was obtained that suggested a rate of [address] changes were noted. PT/INR was elevated with INR of 3.3. Lactic acid was 7.7. CK was elevated to 2116 with a troponin of 1.66. Urine drug screen was negative urine analysis positive for blood with 10 WBCs metabolic acidosis with anion gap of 18 was seen. AST 5684 ALT 3170 alkaline phosphatase 108 and lipase 2126. Patient received Kayexalate rectally arm. Vitamin K for the elevated INR. No active seizures seen. CT was obtained in the ER that was negative for any acute abnormality. Patient was evaluated this morning is unable to provide any history. Continues to be a moaning in pain. Repeat labs this morning suggested worsening of liver function test. Home with the metabolic acidosis concern for temporary dialysis been raised. The Dr. Clement is consulted for placement of temporary dialysis catheter. Repeat CMP is obtained. Abdomen CT will be obtained to rule out pancreatitis, biliary stone, liver cirrhosis and any acute infection. Lactic acid improved to 4 after fluid resuscitation. EEG ordered. Ammonia level is ordered. Patient needs NG tube placement for lactulose 3 times a day orally. Review of Systems ROS unobtainable: due to mental status Past Medical History Past Medical History: Blood Disorder, GERD/Reflux, Hyperlipidemia, Osteoarthritis (OA), Renal Disease, Thyroid Disorder Additional Past Medical History / Comment(s): 09/19/15 Pt presented to [facility] ER with chest pain-tightness anterior aspect of her chest which radiated to her L arm. This began today and has associated SOB. Symptoms improved when she sat down and rested. Pt is admitted with clinical impression of chest pain, unstable angina pectorias, NSTEMI. Other HX: CKD stage IV, hypothyroidism, anemia, sciatica radiating down both legs, UTI's in the past. PT states she was taken off her HTN medication about one year ago. History of Any Multi-Drug Resistant Organisms: None Reported Past Surgical History: Cholecystectomy, Joint Replacement, Orthopedic Surgery, Tonsillectomy Additional Past Surgical History / Comment(s): Bilateral total knee replacements , Bilateral Cataract surgery, Right carpal tunnel release, back injections, colonoscopy-normal. Past Anesthesia/Blood Transfusion Reactions: No Reported Reaction Past Psychological History: Anxiety Additional Psychological History / Comment(s): Pt has a son and grandson who live with her. She uses a cane at times. She drives. She is independent. Smoking Status: Never smoker Past Alcohol Use History: None Reported Past Drug Use History: None Reported - Past Family History Mother Family Medical History: CVA/TIA Additional Family Medical History / Comment(s): Mother lived into her 80's Father Family Medical History: Coronary Artery Disease (CAD) Additional Family Medical History / Comment(s): Father lived into his 80's Sister(s) Family Medical History: Cancer Son(s) Family Medical History: No Reported History Daughter(s) Family Medical History: No Reported History Medications and Allergies Home Medications Medication Instructions Recorded Confirmed Type Levothyroxine Sodium [Synthroid] 75 mcg PO AC-BRKFST 09/24/14 08/15/18 History Rosuvastatin [Crestor] 10 mg PO AC-SUPPER 09/24/14 08/15/18 History Calcium Carbonate/Vitamin D3 1 tab PO AC-SUPPER 12/19/16 08/15/18 History [Caltrate 600 Plus D3 Tablet] Allopurinol [Zyloprim] 100 mg PO AC-BRKFST 04/09/17 08/15/18 History Aspirin EC [Ecotrin Low Dose] 81 mg PO AC-SUPPER 04/09/17 08/15/18 History Famotidine [Pepcid] 20 mg PO AC-BRKFST 04/09/17 08/15/18 History Metoprolol Succinate (ER) [Toprol 50 mg PO AC-SUPPER 04/09/17 08/15/18 History Xl] Cyanocobalamin (Vitamin B-12) 1,000 mcg PO AC-SUPPER 03/21/18 08/15/18 History [Vitamin B-12] buPROPion XL [Wellbutrin Xl] 150 mg PO AC-BRKFST 03/21/18 08/15/18 History Furosemide [Lasix] 40 mg PO MOFR 08/15/18 08/15/18 History Isosorbide Mononitrate ER [Imdur] 60 mg PO AC-BRKFST 08/15/18 08/15/18 History Multivitamins, Thera [Multivitamin 1 tab PO AC-SUPPER 08/15/18 08/15/18 History (formulary)] Vitamin D3(Unknown) 1 tab PO AC-BRKFST 08/15/18 08/15/18 History traMADol HCL [Ultram] 25 mg PO BID PRN 08/15/18 08/15/18 History Allergies Allergy/AdvReac Type Severity Reaction Status Date / Time No Known Allergies Allergy Verified 08/15/18 14:39 Physical Exam Vitals: Vital Signs Temp Pulse Resp BP BP Pulse Ox 08/16/18 17:30 61 13 144/75 100 08/16/18 17:00 61 19 133/65 99 08/16/18 16:30 61 14 133/65 99 08/16/18 16:00 96.7 F L 61 14 148/68 97 08/16/18 15:30 63 12 148/68 90 L 08/16/18 15:00 63 10 L 155/82 99 08/16/18 14:30 65 13 155/82 97 08/16/18 14:00 64 20 142/71 100 08/16/18 13:30 62 18 142/71 96 08/16/18 13:00 63 14 146/79 95 08/16/18 12:30 63 13 149/76 97 08/16/18 12:00 96.7 F L 63 11 L 147/80 97 08/16/18 11:30 63 13 143/85 08/16/18 11:00 64 11 L 136/82 08/16/18 10:30 64 20 124/113 08/16/18 10:00 64 16 122/79 96 08/16/18 09:30 64 23 109/92 99 08/16/18 09:00 63 11 L 137/96 98 08/16/18 08:30 64 11 L 143/93 98 08/16/18 08:00 97.6 F 63 12 133/109 97 08/16/18 07:00 63 15 106/88 95 08/16/18 06:00 58 L 6 L 130/57 96 08/16/18 05:00 57 L 23 102/71 08/16/18 04:00 58 L 30 H 112/78 08/16/18 03:00 97.6 F 57 L 20 90/76 08/16/18 02:00 56 L 12 116/45 08/16/18 01:00 58 L 13 127/63 08/16/18 00:00 96.3 F L 57 L 23 139/75 94 L 08/15/18 23:00 56 L 8 L 86/75 08/15/18 22:30 57 L 11 L 123/59 08/15/18 22:00 55 L 11 L 140/115 08/15/18 21:30 55 L 12 115/79 08/15/18 21:00 16 146/82 08/15/18 20:37 96.7 F L 55 L 10 L 08/15/18 20:00 59 L 16 137/82 97 08/15/18 19:30 96.9 F L 16 146/82 96 08/15/18 18:30 144/74 95 Intake and Output 08/16/18 08/16/18 08/16/18 06:59 14:59 22:59 Intake Total 1290 940 300 Output Total 31 20 10 Balance 1259 920 290 Intake: IV 100 800 300 Dextrose 5% in Water 1, 100 800 300 000 ml @ 100 mls/hr IV . Q11H DALILA with Sodium Bicarb (1 Meq/ml) 100 ml Rx#:[id number] Intake, IV Titration 1190 140 Amount Dextrose 5%-0.9% NaCl 1, 560 000 ml @ 80 mls/hr IV . [id number] DALILA Rx#:[id number] Phytonadione 5 mg In 50 100 Sodium Chloride 0.9% 50 ml @ 100 mls/hr IVPB ONCE STA Rx#:[id number] Sodium Chloride 0.9% 500 580 40 ml 500 ml @ 999 mls/hr IV .Q31M ONE Rx#:[id number] Output: Urine 31 20 10 Other: Weight 55 kg 55 kg - Constitutional General appearance: Obtunded unable to cooperate in examination - EENT Eyes: Constricted pupils reactive to light ENT: Hearing could not be assessed - Neck Neck: no lymphadenopathy, normal ROM, no other, no rigidity - Respiratory Respiratory: bilateral: diminished, dullness at the bases bilaterally- Cardiovascular Rhythm: regular Heart sounds: normal: S1, S2 Abnormal Heart Sounds: Please/5 systolic murmur, no diastolic murmur - Gastrointestinal General gastrointestinal: normal bowel sounds, soft nontender - Integumentary Integumentary: no rash - Neurologic Neurologic: Could not be assessed due to mental status. Patient is moving all her extremities passively and actively with withdrawal on painful stimulus - Musculoskeletal Musculoskeletal: strength equal bilaterally - Psychiatric Psychiatric: Obtunded Results CBC & Chem 7: 08/16/18 04:31 08/16/18 14:17 Labs: Abnormal Lab Results - Last 24 Hours (Table) 08/15/18 08/15/18 08/15/18 Range/Units 18:03 20:25 23:30 WBC (3.8-10.6) k/uL RBC (3.80-5.40) m/uL Hgb (11.4-16.0) gm/dL Hct (34.0-46.0) % MCV (80.0-100.0) fL MCHC (31.0-37.0) g/dL RDW (11.5-15.5) % Plt Count (150-450) k/uL Neutrophils # (1.3-7.7) k/uL Lymphocytes # (1.0-4.8) k/uL PT (9.0-12.0) sec INR (<1.2) APTT (22.0-30.0) sec Potassium (3.5-5.1) mmol/L Chloride (98-107) mmol/L Carbon Dioxide (22-30) mmol/L BUN (7-17) mg/dL Creatinine (0.52-1.04) mg/dL Glucose (74-99) mg/dL POC Glucose (mg/dL) 69 L 137 H (75-99) mg/dL Plasma Lactic Acid Jon 7.8 H* (0.7-2.0) mmol/L Calcium (8.4-10.2) mg/dL Total Bilirubin (0.2-1.3) mg/dL AST (14-36) U/L ALT (9-52) U/L Total Protein (6.3-8.2) g/dL Albumin (3.5-5.0) g/dL 08/16/18 08/16/18 08/16/18 Range/Units 02:02 04:31 04:31 WBC 17.1 H (3.8-10.6) k/uL RBC 3.11 L (3.80-5.40) m/uL Hgb 9.6 L (11.4-16.0) gm/dL Hct 31.9 L (34.0-46.0) % MCV 102.6 H (80.0-100.0) fL MCHC 30.2 L (31.0-37.0) g/dL RDW 18.1 H (11.5-15.5) % Plt Count 57 L (150-450) k/uL Neutrophils # 15.4 H (1.3-7.7) k/uL Lymphocytes # 0.6 L (1.0-4.8) k/uL PT 37.8 H (9.0-12.0) sec INR 4.2 H (<1.2) APTT 39.1 H (22.0-30.0) sec Potassium (3.5-5.1) mmol/L Chloride (98-107) mmol/L Carbon Dioxide (22-30) mmol/L BUN (7-17) mg/dL Creatinine (0.52-1.04) mg/dL Glucose (74-99) mg/dL POC Glucose (mg/dL) (75-99) mg/dL Plasma Lactic Acid Jon 8.9 H* (0.7-2.0) mmol/L Calcium (8.4-10.2) mg/dL Total Bilirubin (0.2-1.3) mg/dL AST (14-36) U/L ALT (9-52) U/L Total Protein (6.3-8.2) g/dL Albumin (3.5-5.0) g/dL 08/16/18 08/16/18 08/16/18 Range/Units 04:31 05:46 07:17 WBC (3.8-10.6) k/uL RBC (3.80-5.40) m/uL Hgb (11.4-16.0) gm/dL Hct (34.0-46.0) % MCV (80.0-100.0) fL MCHC (31.0-37.0) g/dL RDW (11.5-15.5) % Plt Count (150-450) k/uL Neutrophils # (1.3-7.7) k/uL Lymphocytes # (1.0-4.8) k/uL PT (9.0-12.0) sec INR (<1.2) APTT (22.0-30.0) sec Potassium 6.3 H* (3.5-5.1) mmol/L Chloride 113 H (98-107) mmol/L Carbon Dioxide 13 L (22-30) mmol/L BUN 100 H (7-17) mg/dL Creatinine 5.23 H (0.52-1.04) mg/dL Glucose 120 H (74-99) mg/dL POC Glucose (mg/dL) 111 H (75-99) mg/dL Plasma Lactic Acid Jon 7.5 H* (0.7-2.0) mmol/L Calcium 8.2 L (8.4-10.2) mg/dL Total Bilirubin 1.7 H (0.2-1.3) mg/dL AST 5712 H (14-36) U/L ALT 3432 H (9-52) U/L Total Protein 5.4 L (6.3-8.2) g/dL Albumin 3.0 L (3.5-5.0) g/dL 08/16/18 08/16/18 Range/Units 14:17 14:17 WBC (3.8-10.6) k/uL RBC (3.80-5.40) m/uL Hgb (11.4-16.0) gm/dL Hct (34.0-46.0) % MCV (80.0-100.0) fL MCHC (31.0-37.0) g/dL RDW (11.5-15.5) % Plt Count (150-450) k/uL Neutrophils # (1.3-7.7) k/uL Lymphocytes # (1.0-4.8) k/uL PT (9.0-12.0) sec INR (<1.2) APTT (22.0-30.0) sec Potassium 5.4 H (3.5-5.1) mmol/L Chloride (98-107) mmol/L Carbon Dioxide (22-30) mmol/L BUN 103 H* (7-17) mg/dL Creatinine 4.88 H (0.52-1.04) mg/dL Glucose 408 H (74-99) mg/dL POC Glucose (mg/dL) (75-99) mg/dL Plasma Lactic Acid Jon 4.0 H* (0.7-2.0) mmol/L Calcium 6.7 L (8.4-10.2) mg/dL Total Bilirubin (0.2-1.3) mg/dL AST (14-36) U/L ALT (9-52) U/L Total Protein (6.3-8.2) g/dL Albumin (3.5-5.0) g/dL Microbiology - Last 24 Hours (Table) 08/15/18 13:57 Urine Culture - Preliminary Urine,Catheterized Thrombosis Risk Factor Assmnt - DVT/VTE Prophylaxis DVT/VTE Prophylaxis: Mechanical Prophylaxis ordered - Choose All That Apply Any of the Below Risk Factors Present?: No Other Risk Factors: No Other congenital or acquired thrombophilia - If yes, enter type in comment: No Thrombosis Risk Factor Assessment Level: Very Low Risk Assessment and Plan Plan: #1 acute metabolic encephalopathy likely secondary to shock liver and uremia from acute kidney injury over chronic kidney disease. Ammonia levels ordered. EEG ordered. Continue seizure precaution continue fall precautions. Haldol 1 mg 4 times a day as needed for agitation. Avoid benzodiazepine. Urine drug screen negative. Keep patient nothing by mouth until swallow evaluation #2 hyperkalemia with metabolic acidosis. Secondary to chronic kidney disease. Hyperkalemia improved to 5.4 on repeat CMP at 2 PM. Patient may not need dialysis depending upon her recovery. Dr. Moura consulted for possible dialysis catheter placement. Though patient's old age and multiple comorbidities patient is a poor candidate for long-term dialysis. #3 acute kidney injury secondary to ATN overlying CK D. Probably secondary to rhabdomyolysis and worsening chronic kidney disease. Hold nephrotoxic agents including Lasix. MADDIE's. Patient has worsening pleural effusions on the x-ray with history of congestive heart failure, decrease fluid to 50 mL per hour #4 ischemic cardiomyopathy with previous history of N STEMI. Last echocardiogram in 2016 suggest EF of 20% with history of N STEMI in the past. CT abdomen does suggest triple-vessel coronary artery disease. Troponin is elevated repeat troponin 3. Repeat EKG. Previous EKG done in the ER was negative for ST or T-wave changes. Patient is nothing by mouth for now. Hold metoprolol, Imdur, aspirin, Lipitor #5 hypertension and hypertensive atherosclerotic disease hold metoprolol, Imdur due to mental status #6 hyperlipidemia hold rosuvastatin #7 acute transaminitis patient has a acute increase in liver function tests. She had similar presentation in 2016 with workup including ROMERO, CMV, EBV IgG positive. Hepatitis panel was negative during that screening. Patient had low C3 and C4 complement levels. Hemachromatosis was negative. Tylenol level was ordered as patient's daughter mentioned that patient does take Tylenol for pain. She does have some chronic liver failure as there is jacob-hepatic ascites fluid seen on CT. Gastroenterology consulted for further recommendations #8 acute rhabdomyolysis continue IV fluids at 50 mL per hour. Avoid fluid resuscitation due to patient's ischemic cardiomyopathy #9 hypercoagulopathy secondary to acute hepatic failure. FFP ordered pre- dialysis catheter placement. Status post vitamin K 10 mg #10 and hypothyroidism home Synthyroid #11 anemia of chronic kidney disease CBC daily #12 GERDPepcid 20 mg IV twice a day #13 depressionHold Wellbutrin #14 DVT prophylaxis with SCDs
[2018-08-16] MEDS ORDERED: ONDANSETRON 4 MG/2 ML VIAL IVP PRN (18:52)
[2018-08-16] MEDS: LACTULOSE 20 GM/30 ML CUP NG-TUBE SCH ×2 (19:46→22:34)
[2018-08-16] MEDS: SODIUM CHLORIDE 0.9% 1,000 ML IV SCH ×2 (19:47)
[2018-08-16] MEDS: FAMOTIDINE 20 MG/2 ML VIAL IV SCH (19:52)
[2018-08-16 23:58] LABS: Glucose,Whole Blood 170 mg/dL (75-99)
[2018-08-17] MEDS: HALOPERIDOL LACTATE 5 MG/ML 1 ML VIAL IVP PRN ×2 (00:42→18:16)
[2018-08-17] MEDS: DEXTROSE 5% IN WATER 1,000 ML with SODIUM BICARB (1 MEQ/ML) 100 ML IV SCH ×2 (01:39→05:42)
[2018-08-17 05:39] LABS: Anisocytosis Slight; Basophils % (A) 0 %; Eosinophils # (A) 0.1 k/uL (0-0.7); Eosinophils % (A) 1 %; HCT 21.3 % (34.0-46.0); Hypochromasia Slight; Lymphocytes # (A) 0.4 k/uL (1.0-4.8); Lymphocytes % (A) 5 %; MCH 32.3 pg (25.0-35.0); MCHC 32.7 g/dL (31.0-37.0); Macrocytosis Slight; Mean Platelet Volume 9.8; Monocytes # (A) 0.3 k/uL (0-1.0); Monocytes % (A) 3 %; Neutrophils # (A) 7.4 k/uL (1.3-7.7); Neutrophils % (A) 90 %; Platelet Count 30 k/uL (150-450); RBC 2.16 m/uL (3.80-5.40); RDW 18.9 % (11.5-15.5); WBC 8.2 k/uL (3.8-10.6)
[2018-08-17 05:54] LABS: INR 1.9 (<1.2); Prothrombin Time 17.6 sec (9.0-12.0)
[2018-08-17 06:19] LABS: Albumin 3.3 g/dL (3.5-5.0); Calcium 7.1 mg/dL (8.4-10.2); Potassium 4.5 mmol/L (3.5-5.1); Total Bilirubin 2.2 mg/dL (0.2-1.3); Total Protein 5.8 g/dL (6.3-8.2)
--- NOTE | 2018-08-17 07:37 | XR ---
EXAMINATION TYPE: XR chest 1V DATE OF EXAM: 08/17/2018 HISTORY: Shortness of breath. COMPARISON: 08/12/2014 TECHNIQUE: Single view of the chest is submitted. FINDINGS: Demonstrated are scattered senescent parenchymal change. Summary venous congestion with scattered infiltrates and small effusions as well as cardiomegaly sugg est a mild congestive failure. Hilar and mediastinal structures are within normal limits. Degenerative changes are seen of the dorsal spine. IMPRESSION: 1. Progressive mild congestive failure suggested. Correlate clinically and progress studies are advi sed.
[2018-08-17] MEDS: PHYTONADIONE 10 MG in SODIUM CHLORIDE 0.9% 50 ML IVPB SCH (08:14)
[2018-08-17] MEDS: FAMOTIDINE 20 MG/2 ML VIAL IV SCH (08:14)
[2018-08-17] MEDS: LACTULOSE 20 GM/30 ML CUP NG-TUBE SCH ×3 (08:15→21:27)
[2018-08-17 08:27] LABS: Vancomycin,Random 27.3 ug/mL
[2018-08-17] MEDS ORDERED: FAMOTIDINE 20 MG/2 ML VIAL IV SCH (13:06)
--- NOTE | 2018-08-17 13:12 | P.PN ---
Subjective Progress Note Date: 08/17/18 Seen and examined for the follow-up of acute kidney injury. She has history of CKD4 with baseline creatinine of 3.0-3.4 MG per DL. She had hyperkalemia on admission with 6.6 which improved to 6.3 yesterday with medical treatment. She was started on hemodialysis for persistent oliguria and hyperkalemia and worsening renal failure. Objective - Vital Signs Vital signs: Vital Signs Temp 97.1 F L 08/17/18 12:00 Pulse 64 08/17/18 12:00 Resp 15 08/17/18 12:00 BP 148/79 08/17/18 12:00 Pulse Ox 98 08/17/18 12:00 Intake & Output 08/16/18 08/17/18 08/17/18 18:59 06:59 18:59 Intake Total 1340 4244 600 Output Total 40 25 2000 Balance 1300 4219 -1400 Weight 55 kg 54.2 kg Intake: IV 1200 1500 600 Dextrose 5% in Water 1, 1200 1200 600 000 ml @ 100 mls/hr IV . Q11H DALILA with Sodium Bicarb (1 Meq/ml) 100 ml Rx#:[id number] Vancomycin 1,250 mg In 250 Sodium Chloride 0.9% 250 ml @ 125 mls/hr IVPB ONCE ONE Rx#:[id number] cefTRIAXone 1,000 mg In 50 Sodium Chloride 0.9% 50 ml @ 100 mls/hr IVPB Q24HR DALILA Rx#:[id number] Intake, IV Titration 140 Amount Phytonadione 5 mg In 100 Sodium Chloride 0.9% 50 ml @ 100 mls/hr IVPB ONCE STA Rx#:[id number] Sodium Chloride 0.9% 500 40 ml 500 ml @ 999 mls/hr IV .Q31M ONE Rx#:[id number] Blood Product 2744 Ffp 24 Cpd Unit 293 [id number] Ffp 24 Cpd Unit 304 [id number] Ffp 24 Cpd Unit 305 [id number] Ffp 24 Cpd Unit 296 [id number] Ffp 24 Cpd Unit 323 [id number] Output: Urine 40 25 0 Other 2000 - Exam Nonverbal S1-S2 heard Lungs clear No edema right groin Enoch - Labs CBC & Chem 7: 08/17/18 05:20 08/17/18 05:20 Labs: Abnormal Lab Results - Last 24 Hours (Table) 08/16/18 08/16/18 08/16/18 Range/Units 14:17 14:17 18:09 RBC (3.80-5.40) m/uL Hgb (11.4-16.0) gm/dL Hct (34.0-46.0) % RDW (11.5-15.5) % Plt Count (150-450) k/uL Lymphocytes # (1.0-4.8) k/uL PT (9.0-12.0) sec INR (<1.2) Potassium 5.4 H (3.5-5.1) mmol/L BUN 103 H* (7-17) mg/dL Creatinine 4.88 H (0.52-1.04) mg/dL Glucose 408 H (74-99) mg/dL POC Glucose (mg/dL) (75-99) mg/dL Plasma Lactic Acid Jon 4.0 H* 4.6 H* (0.7-2.0) mmol/L Calcium 6.7 L (8.4-10.2) mg/dL Phosphorus (2.5-4.5) mg/dL Total Bilirubin (0.2-1.3) mg/dL AST (14-36) U/L ALT (9-52) U/L Troponin I (0.000-0.034) ng/mL Total Protein (6.3-8.2) g/dL Albumin (3.5-5.0) g/dL 08/16/18 08/16/18 08/16/18 Range/Units 18:22 18:50 23:48 RBC (3.80-5.40) m/uL Hgb (11.4-16.0) gm/dL Hct (34.0-46.0) % RDW (11.5-15.5) % Plt Count (150-450) k/uL Lymphocytes # (1.0-4.8) k/uL PT (9.0-12.0) sec INR (<1.2) Potassium (3.5-5.1) mmol/L BUN (7-17) mg/dL Creatinine (0.52-1.04) mg/dL Glucose (74-99) mg/dL POC Glucose (mg/dL) (75-99) mg/dL Plasma Lactic Acid Jon (0.7-2.0) mmol/L Calcium (8.4-10.2) mg/dL Phosphorus 7.0 H (2.5-4.5) mg/dL Total Bilirubin (0.2-1.3) mg/dL AST (14-36) U/L ALT (9-52) U/L Troponin I 2.490 H* 1.990 H* (0.000-0.034) ng/mL Total Protein (6.3-8.2) g/dL Albumin (3.5-5.0) g/dL 08/16/18 08/17/18 08/17/18 Range/Units 23:55 00:14 05:20 RBC 2.16 L (3.80-5.40) m/uL Hgb 7.0 L D (11.4-16.0) gm/dL Hct 21.3 L (34.0-46.0) % RDW 18.9 H (11.5-15.5) % Plt Count 30 L (150-450) k/uL Lymphocytes # 0.4 L (1.0-4.8) k/uL PT (9.0-12.0) sec INR (<1.2) Potassium (3.5-5.1) mmol/L BUN (7-17) mg/dL Creatinine (0.52-1.04) mg/dL Glucose (74-99) mg/dL POC Glucose (mg/dL) 170 H (75-99) mg/dL Plasma Lactic Acid Jon 3.3 H* (0.7-2.0) mmol/L Calcium (8.4-10.2) mg/dL Phosphorus (2.5-4.5) mg/dL Total Bilirubin (0.2-1.3) mg/dL AST (14-36) U/L ALT (9-52) U/L Troponin I (0.000-0.034) ng/mL Total Protein (6.3-8.2) g/dL Albumin (3.5-5.0) g/dL 08/17/18 08/17/18 08/17/18 Range/Units 05:20 05:20 05:20 RBC (3.80-5.40) m/uL Hgb (11.4-16.0) gm/dL Hct (34.0-46.0) % RDW (11.5-15.5) % Plt Count (150-450) k/uL Lymphocytes # (1.0-4.8) k/uL PT 17.6 H (9.0-12.0) sec INR 1.9 H (<1.2) Potassium (3.5-5.1) mmol/L BUN 109 H* (7-17) mg/dL Creatinine 5.59 H (0.52-1.04) mg/dL Glucose 141 H (74-99) mg/dL POC Glucose (mg/dL) (75-99) mg/dL Plasma Lactic Acid Jon (0.7-2.0) mmol/L Calcium 7.1 L (8.4-10.2) mg/dL Phosphorus (2.5-4.5) mg/dL Total Bilirubin 2.2 H (0.2-1.3) mg/dL AST 3616 H (14-36) U/L ALT 2551 H (9-52) U/L Troponin I 1.820 H* (0.000-0.034) ng/mL Total Protein 5.8 L (6.3-8.2) g/dL Albumin 3.3 L (3.5-5.0) g/dL 08/17/18 Range/Units 05:20 RBC (3.80-5.40) m/uL Hgb (11.4-16.0) gm/dL Hct (34.0-46.0) % RDW (11.5-15.5) % Plt Count (150-450) k/uL Lymphocytes # (1.0-4.8) k/uL PT (9.0-12.0) sec INR (<1.2) Potassium (3.5-5.1) mmol/L BUN (7-17) mg/dL Creatinine (0.52-1.04) mg/dL Glucose (74-99) mg/dL POC Glucose (mg/dL) (75-99) mg/dL Plasma Lactic Acid Jon 4.0 H* (0.7-2.0) mmol/L Calcium (8.4-10.2) mg/dL Phosphorus (2.5-4.5) mg/dL Total Bilirubin (0.2-1.3) mg/dL AST (14-36) U/L ALT (9-52) U/L Troponin I (0.000-0.034) ng/mL Total Protein (6.3-8.2) g/dL Albumin (3.5-5.0) g/dL Microbiology - Last 24 Hours (Table) 08/15/18 13:57 Urine Culture - Preliminary Urine,Catheterized Gram Neg Bacilli 08/15/18 12:48 Blood Culture - Preliminary Blood No Growth after 24 hours Assessment and Plan Assessment: #1 Oliguric acute kidney injury secondary to hemodynamic ATN. #2 anion gap metabolic acidosis from lactic acidosis. #3 hyperkalemia associated with acute kidney injury and metabolic acidosis. #4 transaminitis #5 acute pancreatitis #6 CKD4 to baseline creatinine of 3.1 - 3.4 MG per DL in 2017. Plan: #1 with oliguria, metabolic acidosis and hyperkalemia started on hemodialysis today while right femoral Enoch catheter. plan dialysis again tomorrow. #2. After dialysis tomorrow stop bicarb drip. Discussed with the family at bedsite regarding plan of care.
--- NOTE | 2018-08-17 16:38 | P.PN ---
Subjective Progress Note Date: 08/17/18 (Critical care time 35 minutes) Principal diagnosis: Altered mental status, encephalopathy, acute renal failure, hypovolemic shock and acute liver injury, UTI and severe sepsis associated with gram-negative rods , coagulopathy, lactic acidosis, 08/17/2018, patient seen eval examined during the rounds clinically patient has not been different from baseline some urine output has been noted mental status remains very poor patient remains somnolent but does respond by moving extremity with deep stimuli no significant agitation and anxiety is seen patient did receive Haldol midnight, her radiographic studies labs have been reviewed, patient is status post first cycle of hemodialysis today and about 2 L of fluid has been removed, chest x-ray from today suggestive of interstitial edema and cardiomegaly a small effusion related to fluid overload him a labs reviewed the hemoglobin is down to 7 now white cell count is normalized, predialysis remains elevated postdialysis pending Coagulopathy improved with vitamin K and FFP her urine culture is positive for gram-negative rods, final ID is pending 88-year-old female who was seen eval reexamined in the ICU this patient is a poor historian due to her arm altered mental status she has multiple comorbidities also has chronic renal failure which is being monitor observe patient has not been feeling well for the last 1-2 days with increased weakness and lethargy as not been eating or drinking patient was brought into the emergency department by daughter who expressed concern about confusion as well as developing hallucination Ammann patient has ongoing problems associated with multiple issues and comorbidities including hypothyroidism and dyslipidemia chronic gout hypertension hypertensive cardiovascular disease, off note on arrival was patient was bradycardic with hypertensive emergency heart rate was 6052 and blood pressure 163/97, she had leukocytosis with white cell count over 16,800 along with coagulopathy, patient appeared to have acute anion gap metabolic acidosis related to lactic acidosis which is likely due to poor perfusion oxygenation was stable patient appears to have shock liver and coagulopathy or setting of renal failure with severe hyperkalemia, patient has been managed accordingly Kayexalate couldn't be given orally but given rectally , her white cell count have gone up to 17,000, hemoglobin however remains stable she has significant thrombocytopenia platelet count have dropped down to 57,000 from 80,000, INR has been getting worse with 4.2-3.3 on arrival, patient has been on vitamin K, BUN/creatinine went up to 103/4.88, with GFR of only 8, lactic acid down with fluid resuscitation to 4 from 7.8 both AST and ALP are in 5000 and 3000 range respectively total CK is over 2000 patient appears to have component of acute rhabdomyolysis with acute renal failure on chronic renal failure and severe coagulopathy and shock liver due to severe hypertension urine drug screen is negative urine culture is pending my patient has been evaluated by renal services plan is to undergo hemodialysis would recommend to give 6 bags of FFP while undergoing dialysis catheter Objective - Vital Signs Vital signs: Vital Signs Temp 97.1 F L 08/17/18 12:00 Pulse 64 08/17/18 15:00 Resp 15 08/17/18 15:00 BP 146/76 08/17/18 15:00 Pulse Ox 100 08/17/18 15:00 Intake & Output 08/16/18 08/17/18 08/17/18 18:59 06:59 18:59 Intake Total 1340 4244 900 Output Total 40 25 2000 Balance 1300 4219 -1100 Weight 55 kg 54.2 kg Intake: IV 1200 1500 900 Dextrose 5% in Water 1, 1200 1200 900 000 ml @ 100 mls/hr IV . Q11H DALILA with Sodium Bicarb (1 Meq/ml) 100 ml Rx#:[id number] Vancomycin 1,250 mg In 250 Sodium Chloride 0.9% 250 ml @ 125 mls/hr IVPB ONCE ONE Rx#:[id number] cefTRIAXone 1,000 mg In 50 Sodium Chloride 0.9% 50 ml @ 100 mls/hr IVPB Q24HR DALILA Rx#:[id number] Intake, IV Titration 140 Amount Phytonadione 5 mg In 100 Sodium Chloride 0.9% 50 ml @ 100 mls/hr IVPB ONCE STA Rx#:[id number] Sodium Chloride 0.9% 500 40 ml 500 ml @ 999 mls/hr IV .Q31M ONE Rx#:[id number] Blood Product 2744 Ffp 24 Cpd Unit 293 [id number] Ffp 24 Cpd Unit 304 [id number] Ffp 24 Cpd Unit 305 [id number] Ffp 24 Cpd Unit 296 [id number] Ffp 24 Cpd Unit 323 [id number] Output: Urine 40 25 0 Other 2000 - Exam - Constitutional General appearance: average body habitus, disheveled, mild distress, somnolent but does respond to deep painful stimuli - EENT Eyes: EOMI, PERRLA, poor dentition, normal appearance ENT: hard of hearing Ears: bilateral: normal - Neck Carotids: bilateral: upstroke normal, neck bruise noted Thyroid: bilateral: normal size - Respiratory Respiratory: bilateral:, diminished, bilateral crackles slightly more compared to yesterday - Cardiovascular Heart sounds: normal: S1, S2 - Neurologic Neurologic: CNII-XII intact, pupils are midsize equal reactive to light patient does withdraw to pain but remains somnolent she does move all 4 extremity - Musculoskeletal Musculoskeletal: generalized weakness, strength equal bilaterally - Labs CBC & Chem 7: 08/17/18 05:20 08/17/18 05:20 Labs: Abnormal Lab Results - Last 24 Hours (Table) 08/16/18 08/16/18 08/16/18 Range/Units 18:09 18:22 18:50 RBC (3.80-5.40) m/uL Hgb (11.4-16.0) gm/dL Hct (34.0-46.0) % RDW (11.5-15.5) % Plt Count (150-450) k/uL Lymphocytes # (1.0-4.8) k/uL PT (9.0-12.0) sec INR (<1.2) BUN (7-17) mg/dL Creatinine (0.52-1.04) mg/dL Glucose (74-99) mg/dL POC Glucose (mg/dL) (75-99) mg/dL Plasma Lactic Acid Jon 4.6 H* (0.7-2.0) mmol/L Calcium (8.4-10.2) mg/dL Phosphorus 7.0 H (2.5-4.5) mg/dL Total Bilirubin (0.2-1.3) mg/dL AST (14-36) U/L ALT (9-52) U/L Troponin I 2.490 H* (0.000-0.034) ng/mL Total Protein (6.3-8.2) g/dL Albumin (3.5-5.0) g/dL 08/16/18 08/16/18 08/17/18 Range/Units 23:48 23:55 00:14 RBC (3.80-5.40) m/uL Hgb (11.4-16.0) gm/dL Hct (34.0-46.0) % RDW (11.5-15.5) % Plt Count (150-450) k/uL Lymphocytes # (1.0-4.8) k/uL PT (9.0-12.0) sec INR (<1.2) BUN (7-17) mg/dL Creatinine (0.52-1.04) mg/dL Glucose (74-99) mg/dL POC Glucose (mg/dL) 170 H (75-99) mg/dL Plasma Lactic Acid Jon 3.3 H* (0.7-2.0) mmol/L Calcium (8.4-10.2) mg/dL Phosphorus (2.5-4.5) mg/dL Total Bilirubin (0.2-1.3) mg/dL AST (14-36) U/L ALT (9-52) U/L Troponin I 1.990 H* (0.000-0.034) ng/mL Total Protein (6.3-8.2) g/dL Albumin (3.5-5.0) g/dL 08/17/18 08/17/18 08/17/18 Range/Units 05:20 05:20 05:20 RBC 2.16 L (3.80-5.40) m/uL Hgb 7.0 L D (11.4-16.0) gm/dL Hct 21.3 L (34.0-46.0) % RDW 18.9 H (11.5-15.5) % Plt Count 30 L (150-450) k/uL Lymphocytes # 0.4 L (1.0-4.8) k/uL PT (9.0-12.0) sec INR (<1.2) BUN 109 H* (7-17) mg/dL Creatinine 5.59 H (0.52-1.04) mg/dL Glucose 141 H (74-99) mg/dL POC Glucose (mg/dL) (75-99) mg/dL Plasma Lactic Acid Jon (0.7-2.0) mmol/L Calcium 7.1 L (8.4-10.2) mg/dL Phosphorus (2.5-4.5) mg/dL Total Bilirubin 2.2 H (0.2-1.3) mg/dL AST 3616 H (14-36) U/L ALT 2551 H (9-52) U/L Troponin I 1.820 H* (0.000-0.034) ng/mL Total Protein 5.8 L (6.3-8.2) g/dL Albumin 3.3 L (3.5-5.0) g/dL 08/17/18 08/17/18 Range/Units 05:20 05:20 RBC (3.80-5.40) m/uL Hgb (11.4-16.0) gm/dL Hct (34.0-46.0) % RDW (11.5-15.5) % Plt Count (150-450) k/uL Lymphocytes # (1.0-4.8) k/uL PT 17.6 H (9.0-12.0) sec INR 1.9 H (<1.2) BUN (7-17) mg/dL Creatinine (0.52-1.04) mg/dL Glucose (74-99) mg/dL POC Glucose (mg/dL) (75-99) mg/dL Plasma Lactic Acid Jon 4.0 H* (0.7-2.0) mmol/L Calcium (8.4-10.2) mg/dL Phosphorus (2.5-4.5) mg/dL Total Bilirubin (0.2-1.3) mg/dL AST (14-36) U/L ALT (9-52) U/L Troponin I (0.000-0.034) ng/mL Total Protein (6.3-8.2) g/dL Albumin (3.5-5.0) g/dL Microbiology - Last 24 Hours (Table) 08/15/18 13:57 Urine Culture - Preliminary Urine,Catheterized Gram Neg Bacilli 08/15/18 12:48 Blood Culture - Preliminary Blood No Growth after 24 hours - Imaging and Cardiology Chest x-ray: report reviewed, image reviewed (As noted above) Assessment and Plan Assessment: Altered mental status encephalopathy multifactorial Hypovolemic shock Severe profound metabolic acidosis related to lactic acidosis due to intravascular volume depletion and dehydration and acute on chronic renal failure Acute rhabdomyolysis Shock liver with very high liver enzymes Coagulopathy multifactorial Stage V renal failure Plan: Continue gentle rehydration Bicarb drip Patient is status post first cycle of hemodialysis Would recommend to give vitamin K daily 10 mg We will initiate patient on broad-spectrum antibiotics with IV Rocephin Follow-up on urine culture results and reports Overall long-term prognosis poor Obtain nasopharyngeal swab for influenza A and B Repeat labs and x-ray tomorrow Patient will likely need another cycle hemodialysis tomorrow If mental status did not improve by tomorrow consider repeating another computed tomography scan of head without dye Critical care time 35 minutes Time with Patient: Greater than 30
--- NOTE | 2018-08-17 17:31 | P.PN ---
Subjective Progress Note Date: 08/17/18 This is an 85-year-old female in of Dr. Muller with a previous medical history significant for hypertension and hypertensive perivascular disease, hyperlipidemia, hypothyroidism, chronic kidney disease stage IV, anemia of chronic kidney disease, depression, GERD, last admitted in August 2016 for acute chest pain. Patient was reported to have an ejection fraction 20% with global hypokinesia with possible underlying ischemic cardiomyopathy and valvular heart disease. Patient was also found to have mild troponin anemia, elevated transaminitis. Detailed workup was done during that admission. Hepatitis panel was negative. CMV IgG antibody was reactive Lamont-Mcconnell virus IgG antibody was reactive. Ultrasound of the abdomen showed that the hepatic ascites during that time. Patient also had hematochromatosis workup that was negative. He did have positive ROMERO but negative double-stranded DNA. Complement C3 and C4 levels were low. Patient was transferred to [facility] during that visit. Patient comes in this time with change in mental status for 1 day. According to the daughter bedside patient was having trouble with her lower extremity and was feeling unfelt for the past 1 week. She had some she had sciatica like pain in her lower extremity and was having difficulty walking. She lost appetite and is stopped eating or drinking 2 days ago. Patient noticed patient was moaning and groaning and had some hallucinations. She was brought to the ER had a heart rate of 52, saturating 96% on 2 L. The blood pressure 163/97. Labs obtained suggested a hemoglobin 10.1 leukocytosis 16.8, his potassium 6.6 normal sodium, creatinine of 5.12 patient has CK D stage IV baseline, BUN 97. EKG was obtained that suggested a rate of [address] changes were noted. PT/INR was elevated with INR of 3.3. Lactic acid was 7.7. CK was elevated to 2116 with a troponin of 1.66. Urine drug screen was negative urine analysis positive for blood with 10 WBCs metabolic acidosis with anion gap of 18 was seen. AST 5684 ALT 3170 alkaline phosphatase 108 and lipase 2126. Patient received Kayexalate rectally arm. Vitamin K for the elevated INR. No active seizures seen. CT was obtained in the ER that was negative for any acute abnormality. Patient was evaluated this morning is unable to provide any history. Continues to be a moaning in pain. Repeat labs this morning suggested worsening of liver function test. Home with the metabolic acidosis concern for temporary dialysis been raised. The Dr. Clement is consulted for placement of temporary dialysis catheter. Repeat CMP is obtained. Abdomen CT will be obtained to rule out pancreatitis, biliary stone, liver cirrhosis and any acute infection. Lactic acid improved to 4 after fluid resuscitation. EEG ordered. Ammonia level is ordered. Patient needs NG tube placement for lactulose 3 times a day orally. Patient is obtained and unable to provide any history. Continues to be in the ICU blood pressure 146/76 respiratory rate 15, pulse rate 64 saturating 100% on room air. Patient underwent dialysis this morning 2 L of fluid removed. Potassium has improved INR has improved ammonia levels came down to 9. NG tube could not be placed patient has significant bruises involving the neck and the upper chest. Hemoglobin is 7 drop from 9.6 lactic acid continue to trend up from 3.3-4. Troponin trending down to 1.8. AST improved from 9766-4808, AST improved from 3000 172 2551 alkaline phosphatase normalized to 1.20 patient continues to be encephalopathic despite dialysis. No improvement on painful stimuli. EEG pending. Neurology consulted. Urine culture positive for gram- negative rods. Patient received 3 bags of FFP prior to dialysis. continue bicarb drip. One dose of vitamin K 10 mg given. Continue Rocephin and vancomycin. CT abdomen done yesterday suggested perihepatic ascites, atrophic pancreas but no dilated bowels for concern of colitis bilateral pleural effusion seen. Concern for fluid overload. Patient has made minimal urine output or improvement in mental status. Patient is a poor prognosis. If no improvement seen in 24 hours as consider hospice review of systems could not be obtained due to mental status Objective - Vital Signs Vital signs: Vital Signs Temp 97.1 F L 08/17/18 12:00 Pulse 64 08/17/18 15:00 Resp 15 08/17/18 15:00 BP 146/76 08/17/18 15:00 Pulse Ox 100 08/17/18 15:00 Intake & Output 08/16/18 08/17/18 08/17/18 18:59 06:59 18:59 Intake Total 1340 4244 900 Output Total 40 25 2000 Balance 1300 4219 -1100 Weight 55 kg 54.2 kg Intake: IV 1200 1500 900 Dextrose 5% in Water 1, 1200 1200 900 000 ml @ 100 mls/hr IV . Q11H DALILA with Sodium Bicarb (1 Meq/ml) 100 ml Rx#:[id number] Vancomycin 1,250 mg In 250 Sodium Chloride 0.9% 250 ml @ 125 mls/hr IVPB ONCE ONE Rx#:[id number] cefTRIAXone 1,000 mg In 50 Sodium Chloride 0.9% 50 ml @ 100 mls/hr IVPB Q24HR DALILA Rx#:[id number] Intake, IV Titration 140 Amount Phytonadione 5 mg In 100 Sodium Chloride 0.9% 50 ml @ 100 mls/hr IVPB ONCE STA Rx#:[id number] Sodium Chloride 0.9% 500 40 ml 500 ml @ 999 mls/hr IV .Q31M ONE Rx#:[id number] Blood Product 2744 Ffp 24 Cpd Unit 293 [id number] Ffp 24 Cpd Unit 304 [id number] Ffp 24 Cpd Unit 305 [id number] Ffp 24 Cpd Unit 296 [id number] Ffp 24 Cpd Unit 323 [id number] Output: Urine 40 25 0 Other 2000 - Exam - Constitutional General appearance: Patient is unable to participate in examination. Pupils are pinpoint and minimally reactive to light - EENT Eyes: anicteric sclerae, pupils are pinpoint and minimally reactive ENT: hearing could not be assessed - Neck Neck: Significant bruises around the neck secondary to - Respiratory Respiratory: bilateral: CTA, negative: diminished, dullness, rales, rhonchi - Cardiovascular Rhythm: regular Heart sounds: normal: S1, S2 Abnormal Heart Sounds: 3/5 systolic murmur, positive for diastolic murmur, no rub, no S3 Gallop, no S4 Gallop, no click, no other - Gastrointestinal General gastrointestinal: normal bowel sounds, soft nondistended - Integumentary Integumentary: Multiple bruises involving the neck and forearms - Neurologic Neurologic: Neurological assessment could not be possible - Musculoskeletal Musculoskeletal: No withdrawal to painful stimuli - Psychiatric Psychiatric: Drowsy nonresponsive maintaining airways, - Labs CBC & Chem 7: 08/17/18 05:20 08/17/18 05:20 Labs: Abnormal Lab Results - Last 24 Hours (Table) 08/16/18 08/16/18 08/16/18 Range/Units 18:09 18:22 18:50 RBC (3.80-5.40) m/uL Hgb (11.4-16.0) gm/dL Hct (34.0-46.0) % RDW (11.5-15.5) % Plt Count (150-450) k/uL Lymphocytes # (1.0-4.8) k/uL PT (9.0-12.0) sec INR (<1.2) BUN (7-17) mg/dL Creatinine (0.52-1.04) mg/dL Glucose (74-99) mg/dL POC Glucose (mg/dL) (75-99) mg/dL Plasma Lactic Acid Jon 4.6 H* (0.7-2.0) mmol/L Calcium (8.4-10.2) mg/dL Phosphorus 7.0 H (2.5-4.5) mg/dL Total Bilirubin (0.2-1.3) mg/dL AST (14-36) U/L ALT (9-52) U/L Troponin I 2.490 H* (0.000-0.034) ng/mL Total Protein (6.3-8.2) g/dL Albumin (3.5-5.0) g/dL 08/16/18 08/16/18 08/17/18 Range/Units 23:48 23:55 00:14 RBC (3.80-5.40) m/uL Hgb (11.4-16.0) gm/dL Hct (34.0-46.0) % RDW (11.5-15.5) % Plt Count (150-450) k/uL Lymphocytes # (1.0-4.8) k/uL PT (9.0-12.0) sec INR (<1.2) BUN (7-17) mg/dL Creatinine (0.52-1.04) mg/dL Glucose (74-99) mg/dL POC Glucose (mg/dL) 170 H (75-99) mg/dL Plasma Lactic Acid Jon 3.3 H* (0.7-2.0) mmol/L Calcium (8.4-10.2) mg/dL Phosphorus (2.5-4.5) mg/dL Total Bilirubin (0.2-1.3) mg/dL AST (14-36) U/L ALT (9-52) U/L Troponin I 1.990 H* (0.000-0.034) ng/mL Total Protein (6.3-8.2) g/dL Albumin (3.5-5.0) g/dL 08/17/18 08/17/18 08/17/18 Range/Units 05:20 05:20 05:20 RBC 2.16 L (3.80-5.40) m/uL Hgb 7.0 L D (11.4-16.0) gm/dL Hct 21.3 L (34.0-46.0) % RDW 18.9 H (11.5-15.5) % Plt Count 30 L (150-450) k/uL Lymphocytes # 0.4 L (1.0-4.8) k/uL PT (9.0-12.0) sec INR (<1.2) BUN 109 H* (7-17) mg/dL Creatinine 5.59 H (0.52-1.04) mg/dL Glucose 141 H (74-99) mg/dL POC Glucose (mg/dL) (75-99) mg/dL Plasma Lactic Acid Jon (0.7-2.0) mmol/L Calcium 7.1 L (8.4-10.2) mg/dL Phosphorus (2.5-4.5) mg/dL Total Bilirubin 2.2 H (0.2-1.3) mg/dL AST 3616 H (14-36) U/L ALT 2551 H (9-52) U/L Troponin I 1.820 H* (0.000-0.034) ng/mL Total Protein 5.8 L (6.3-8.2) g/dL Albumin 3.3 L (3.5-5.0) g/dL 08/17/18 08/17/18 Range/Units 05:20 05:20 RBC (3.80-5.40) m/uL Hgb (11.4-16.0) gm/dL Hct (34.0-46.0) % RDW (11.5-15.5) % Plt Count (150-450) k/uL Lymphocytes # (1.0-4.8) k/uL PT 17.6 H (9.0-12.0) sec INR 1.9 H (<1.2) BUN (7-17) mg/dL Creatinine (0.52-1.04) mg/dL Glucose (74-99) mg/dL POC Glucose (mg/dL) (75-99) mg/dL Plasma Lactic Acid Jon 4.0 H* (0.7-2.0) mmol/L Calcium (8.4-10.2) mg/dL Phosphorus (2.5-4.5) mg/dL Total Bilirubin (0.2-1.3) mg/dL AST (14-36) U/L ALT (9-52) U/L Troponin I (0.000-0.034) ng/mL Total Protein (6.3-8.2) g/dL Albumin (3.5-5.0) g/dL Microbiology - Last 24 Hours (Table) 08/15/18 13:57 Urine Culture - Preliminary Urine,Catheterized Gram Neg Bacilli 08/15/18 12:48 Blood Culture - Preliminary Blood No Growth after 24 hours Assessment and Plan Plan: #1 acute metabolic encephalopathy likely secondary to shock liver and uremia from acute kidney injury over chronic kidney disease. Infectious etiology unit in culture positive for gram-negative bacilli Ammonia levels ordered. EEG ordered. Continue seizure precaution continue fall precautions. Haldol 0.5 mg 4 times a day as needed for agitation. Avoid benzodiazepine. Urine drug screen negative. Keep patient nothing by mouth until swallow evaluation neurology evaluation if patient has no improvement in mental status and 8. We'll make consider hospice due to multiple comorbidities and worse outcomes #2 hyperkalemia with metabolic acidosis. Secondary to chronic kidney disease. Hyperkalemia improved to 4.5 post dialysis. Though patient's old age and multiple comorbidities patient is a poor candidate for long-term dialysis. #3 acute kidney injury secondary to ATN overlying CK D. Probably secondary to rhabdomyolysis and worsening chronic kidney disease. Hold nephrotoxic agents including Lasix. MADDIE's. Patient has worsening pleural effusions on the x-ray with history of congestive heart failure, decrease fluid to 50 mL per hour #4 ischemic cardiomyopathy with previous history of N STEMI. Last echocardiogram in 2015 suggest EF of 20% with history of N STEMI in the past. CT abdomen does suggest triple-vessel coronary artery disease. Troponin is elevated. Repeat troponin trending down. No ST or T-wave changes today Repeat EKG. Previous EKG done in the ER was negative for ST or T-wave changes. Patient is nothing by mouth for now. Hold metoprolol, Imdur, aspirin, Lipitor #5 hypertension and hypertensive atherosclerotic disease hold metoprolol, Imdur due to mental status #6 hyperlipidemia hold rosuvastatin #7 acute transaminitis patient has a acute increase in liver function tests. She had similar presentation in 2016 with workup including ROMERO, CMV, EBV IgG positive. Hepatitis panel was negative during that screening. Patient had low C3 and C4 complement levels. Hemachromatosis was negative. Tylenol level was ordered as patient's daughter mentioned that patient does take Tylenol for pain. She does have some chronic liver failure as there is jacob-hepatic ascites fluid seen on CT. Gastroenterology consulted for further recommendations #8 acute rhabdomyolysis continue IV fluids at 50 mL per hour. Avoid fluid resuscitation due to patient's ischemic cardiomyopathy #9 hypercoagulopathy secondary to acute hepatic failure. FFP ordered pre- dialysis catheter placement. Status post vitamin K 10 mg #10 and hypothyroidism home Synthyroid #11 acute on chronic anemia of chronic kidney disease with thrombocytopenia with hypercoagulability. CBC daily. Hemoglobin is down trending concern for hemolysis and DIC. Status post 3 units FFP. Vitamin K daily LDH and haptoglobin ordered. #12 GERDPepcid 20 mg IV twice a day #13 depressionHold Wellbutrin #14 DVT prophylaxis with SCDs #15 prognosis patient has a very poor prognosis. Detailed discussion was done with the daughter at bedside if no improvement seen in the next 24 hours may consider switching to hospice. Patient is 87 years old with uremia, metabolic encephalopathy from infectious as well as hepatic and the uremic encephalopathy. Continues to have drop in hemoglobin, INR is slightly improved with FFP. Patient appears to be in DIC with very poor prognosis. Family discussion tomorrow for considering hospice
[2018-08-18] MEDS: DEXTROSE 5% IN WATER 1,000 ML with SODIUM BICARB (1 MEQ/ML) 100 ML IV SCH ×2 (01:55→05:22)
[2018-08-18] MEDS: SODIUM CHLORIDE 0.9% 1,000 ML IV SCH (05:15)
[2018-08-18] MEDS: HALOPERIDOL LACTATE 5 MG/ML 1 ML VIAL IVP PRN (05:30)
[2018-08-18 05:40] LABS: Anisocytosis Slight; HCT 24.9 % (34.0-46.0); Hypochromasia Moderate; MCH 32.2 pg (25.0-35.0); MCV 100.7 fL (80.0-100.0); Macrocytosis Moderate; RBC 2.47 m/uL (3.80-5.40); RDW 18.6 % (11.5-15.5)
[2018-08-18 05:44] LABS: INR 2.3 (<1.2); Prothrombin Time 20.8 sec (9.0-12.0)
[2018-08-18 05:45] LABS: Platelet Count 27 k/uL (150-450)
[2018-08-18 05:52] LABS: Calcium 7.1 mg/dL (8.4-10.2); Potassium 3.6 mmol/L (3.5-5.1); Total Bilirubin 1.5 mg/dL (0.2-1.3); Total Protein 5.4 g/dL (6.3-8.2)
[2018-08-18 06:40] LABS: Band Neutrophils % 2 %; Lymphocytes # (M) 0.91 k/uL (1.0-4.8); Myelocytes % 1 %; Neutrophils % (M) 86 %; Nucleated Red Blood Cells 1 /100 WBC (0-0); Total Cells Counted 200; WBC 10.1 k/uL (3.8-10.6)
[2018-08-18 08:42] VITALS: TEMP 97.2
--- NOTE | 2018-08-18 08:54 | XR ---
EXAMINATION TYPE: XR chest 1V DATE OF EXAM: 08/18/2018 COMPARISON: 08/17/2018 HISTORY: Shortness of breath TECHNIQUE: Single frontal view of the chest is obtained. FINDINGS: Bilateral infiltrate and pleural effusion stable. Heart enlarged. Atherosclerotic change a edwina. No pneumothorax. Diffuse osteopenia and arthropathy shoulders. IMPRESSION: 1. Stable bilateral infiltrate and pleural effusion correlate for CHF. Otherwise, consider pneumonia.
[2018-08-18] MEDS: LACTULOSE 20 GM/30 ML CUP NG-TUBE SCH (08:56)
[2018-08-18] MEDS: PHYTONADIONE 10 MG in SODIUM CHLORIDE 0.9% 50 ML IVPB SCH (08:58)
--- NOTE | 2018-08-18 09:28 | P.PN ---
Subjective Patient is seen in follow-up for acute kidney injury on chronic kidney disease. Patient has chronic kidney disease stage IV with baseline creatinine in the range of 3-3.4 secondary to nephrosclerosis. Patient was oliguric and hyperkalemic and was subsequently started on hemodialysis yesterday. She is currently maintained on bicarb drip. She remains oliguric. Patient has history of systolic CHF with ejection fraction of 20%. Currently resting in bed. Family is considering comfort measures only. Vital signs are stable. General: The patient appeared well nourished and normally developed. HEENT: Head exam is unremarkable. Neck is without jugular venous distension. LUNGS: Breath sounds decreased. HEART: Rate and Rhythm are regular. First and second heart sounds normal. No murmurs, rubs or gallops. ABDOMEN: Abdominal exam reveals normal bowel sounds. Non-tender and non- distended. No evidence of peritonitis. EXTREMITITES: No clubbing, cyanosis, or edema. Objective - Vital Signs Vital signs: Vital Signs Temp 97.2 F L 08/18/18 08:00 Pulse 70 08/18/18 08:30 Resp 25 H 08/18/18 08:30 BP 119/77 08/18/18 08:30 Pulse Ox 88 L 08/18/18 08:30 Intake & Output 08/17/18 08/18/18 08/18/18 18:59 06:59 18:59 Intake Total 1200 1200 450 Output Total 2015 55 15 Balance -815 1145 435 Weight 57.2 kg Intake: IV 1200 1200 450 Dextrose 5% in Water 1, 1200 1200 300 000 ml @ 50 mls/hr IV . Q22H DALILA with Sodium Bicarb (1 Meq/ml) 100 ml Rx#:[id number] Sodium Chloride 0.9% 1, 150 000 ml @ 50 mls/hr IV . Q20H DALILA Rx#:[id number] Output: Urine 15 55 15 Other 2000 Other: Voiding Method Indwelling Catheter Indwelling Catheter - Labs CBC & Chem 7: 08/18/18 04:47 08/18/18 04:47 Labs: Abnormal Lab Results - Last 24 Hours (Table) 08/18/18 08/18/18 08/18/18 Range/Units 04:47 04:47 04:47 RBC 2.47 L (3.80-5.40) m/uL Hgb 8.0 L (11.4-16.0) gm/dL Hct 24.9 L (34.0-46.0) % MCV 100.7 H (80.0-100.0) fL RDW 18.6 H (11.5-15.5) % Plt Count 27 L (150-450) k/uL Neutrophils # (Manual) 8.80 H (1.3-7.7) k/uL Lymphocytes # (Manual) 0.91 L (1.0-4.8) k/uL Myelocytes # (Manual) 0.10 H (0) k/uL Nucleated RBCs 1 H (0-0) /100 WBC PT 20.8 H (9.0-12.0) sec INR 2.3 H (<1.2) Chloride 97 L (98-107) mmol/L BUN 88 H (7-17) mg/dL Creatinine 4.49 H (0.52-1.04) mg/dL Glucose 119 H (74-99) mg/dL Calcium 7.1 L (8.4-10.2) mg/dL Total Bilirubin 1.5 H (0.2-1.3) mg/dL ALT 2175 H (9-52) U/L Alkaline Phosphatase 174 H (38-126) U/L Total Protein 5.4 L (6.3-8.2) g/dL Albumin 3.0 L (3.5-5.0) g/dL Microbiology - Last 24 Hours (Table) 08/15/18 13:57 Urine Culture - Final Urine,Catheterized Citrobacter freundii 08/15/18 12:48 Blood Culture - Preliminary Blood No Growth after 48 hours Assessment and Plan Plan: Assessment: 1. Oliguric acute kidney injury secondary to ATN with possible progression of her chronic kidney disease. Currently hemodialysis dependent. Patient had first treatment of dialysis on August 17. 2. Metabolic acidosis secondary to acute kidney injury and lactic acidosis. Maintain on bicarb drip. 3. Hyperkalemia secondary to acute kidney injury and metabolic acidosis. Improved with dialysis. 4. Chronic kidney disease stage IV with baseline creatinine in the range of 3- 3.4 secondary to nephrosclerosis. 5. Transaminitis. 6. Pancreatitis. 7. UTI. Urine culture positive for Citrobacter maintained antibiotics. Plan: Discontinue bicarbonate drip. Start normal saline at 75 mL an hour for maintenance fluids. Second treatment of hemodialysis today. Continue to monitor renal function and urine output. Family considering comfort measures only.
[2018-08-18] MEDS ORDERED: SODIUM CHLORIDE 0.9% 1,000 ML IV SCH (09:30)
--- NOTE | 2018-08-18 09:53 | ECHOF ---
Referral Reason:CHF MEASUREMENTS -------- HEIGHT: 154.9 cm WEIGHT: 57.2 kg BP: 119/77 RVIDd: 2.6 cm (< 3.3) IVSd: 0.9 cm (0.6 - 1.1) LVIDd: 5.4 cm (3.9 - 5.3) LVPWd: 1.0 cm (0.6 - 1.1) IVSs: 1.1 cm LVIDs: 4.8 cm LVPWs: 1.2 cm LAESV Index (A-L): 47.10 ml/m Ao Diam: 2.8 cm (2.0 - 3.7) AV Cusp: 1.8 cm (1.5 - 2.6) LA Diam: 3.1 cm (2.7 - 3.8) MV EXCURSION: 12.321 mm (> 18.000) MV EF SLOPE: 32 mm/s (70 - 150) EPSS: 0.9 cm MV E Korey: 0.77 m/s MV DecT: 206 ms MV A Korey: 0.28 m/s MV E/A Ratio: 2.78 RAP: 5.00 mmHg RVSP: 22.56 mmHg FINDINGS -------- Sinus rhythm. Pt. is combative The left ventricular size is normal. Left ventricular wall thickness is normal. There is severe g lobal hypokinesis of LV . Overall left ventricular systolic function is severely impaired with, an EF between 20 - 25 %. The right ventricle is normal in size and function. LA is severely dilated >40 ml/m2 The right atrium is normal in size. There is mild aortic valve sclerosis. Mild mitral annular calcification present. Alkkndjw-cn-aruerq mitral regurgitation is present. Moderate tricuspid regurgitation present. There is no evidence of pulmonary hypertension. The rig ht ventricular systolic pressure, as measured by Doppler, is 22.56mmHg. Trace/mild (physiologic) pulmonic regurgitation. The aortic root size is normal. IVC Not well visulized. There is no pericardial effusion. CONCLUSIONS -------- 1. Sinus rhythm. 2. Pt. is combative 3. The left ventricular size is normal. 4. Left ventricular wall thickness is normal. 5. There is severe global hypokinesis of LV . 6. Overall left ventricular systolic function is severely impaired with, an EF between 20 - 25 %. 7. LA is severely dilated >40 ml/m2 8. There is mild aortic valve sclerosis. 9. Mild mitral annular calcification present. 10. Nyigfarf-ht-fmpgit mitral regurgitation is present. 11. Moderate tricuspid regurgitation present. 12. There is no evidence of pulmonary hypertension. 13. Trace/mild (physiologic) pulmonic regurgitation. 14. The aortic root size is normal. 15. IVC Not well visulized. 16. There is no pericardial effusion. RESOURCES REPRESENTATIVE: Neela Chau RDCS
--- NOTE | 2018-08-18 11:00 | P.PN ---
Subjective Progress Note Date: 08/18/18 Principal diagnosis: Altered mental status, encephalopathy, acute renal failure, hypovolemic shock and acute liver injury, UTI and severe sepsis associated with gram-negative rods , coagulopathy, lactic acidosis, 08/18/2018, patient seen eval examined during the rounds clinically patient has been remains unchanged, hemodynamic status stable patient undergoing hemodialysis she is being planned for removal of 3 L, I have been advised by the nursing staff family has expressed comfort measures if no significant improvement has been noted, patient remains poorly responsive somewhat appears anxious keeping her eyes closed does move all 4 extremity, pupils are midsize but reactive, labs reviewed medications reviewed BUN/creatinine continued to improve slowly liver functions and liver enzymes are stable compared to yesterday, influenza A and B are both negative chest x-ray revealed interstitial edema 08/17/2018, patient seen eval examined during the rounds clinically patient has not been different from baseline some urine output has been noted mental status remains very poor patient remains somnolent but does respond by moving extremity with deep stimuli no significant agitation and anxiety is seen patient did receive Haldol midnight, her radiographic studies labs have been reviewed, patient is status post first cycle of hemodialysis today and about 2 L of fluid has been removed, chest x-ray from today suggestive of interstitial edema and cardiomegaly a small effusion related to fluid overload him a labs reviewed the hemoglobin is down to 7 now white cell count is normalized, predialysis remains elevated postdialysis pending Coagulopathy improved with vitamin K and FFP her urine culture is positive for gram-negative rods, final ID is pending 88-year-old female who was seen eval reexamined in the ICU this patient is a poor historian due to her arm altered mental status she has multiple comorbidities also has chronic renal failure which is being monitor observe patient has not been feeling well for the last 1-2 days with increased weakness and lethargy as not been eating or drinking patient was brought into the emergency department by daughter who expressed concern about confusion as well as developing hallucination Amarielle patient has ongoing problems associated with multiple issues and comorbidities including hypothyroidism and dyslipidemia chronic gout hypertension hypertensive cardiovascular disease, off note on arrival was patient was bradycardic with hypertensive emergency heart rate was 6052 and blood pressure 163/97, she had leukocytosis with white cell count over 16,800 along with coagulopathy, patient appeared to have acute anion gap metabolic acidosis related to lactic acidosis which is likely due to poor perfusion oxygenation was stable patient appears to have shock liver and coagulopathy or setting of renal failure with severe hyperkalemia, patient has been managed accordingly Kayexalate couldn't be given orally but given rectally , her white cell count have gone up to 17,000, hemoglobin however remains stable she has significant thrombocytopenia platelet count have dropped down to 57,000 from 80,000, INR has been getting worse with 4.2-3.3 on arrival, patient has been on vitamin K, BUN/creatinine went up to 103/4.88, with GFR of only 8, lactic acid down with fluid resuscitation to 4 from 7.8 both AST and ALP are in 5000 and 3000 range respectively total CK is over 2000 patient appears to have component of acute rhabdomyolysis with acute renal failure on chronic renal failure and severe coagulopathy and shock liver due to severe hypertension urine drug screen is negative urine culture is pending my patient has been evaluated by renal services plan is to undergo hemodialysis would recommend to give 6 bags of FFP while undergoing dialysis catheter Objective - Vital Signs Vital signs: Vital Signs Temp 97.2 F L 08/18/18 08:00 Pulse 70 08/18/18 10:00 Resp 15 08/18/18 10:00 BP 152/86 08/18/18 10:00 Pulse Ox 96 08/18/18 10:00 Intake & Output 08/17/18 08/18/18 08/18/18 18:59 06:59 18:59 Intake Total 1200 1200 575 Output Total 2014 Balance -815 1145 560 Weight 57.2 kg Intake: IV 1200 1200 575 Dextrose 5% in Water 1, 1200 1200 300 000 ml @ 50 mls/hr IV . Q22H DALILA with Sodium Bicarb (1 Meq/ml) 100 ml Rx#:[id number] Sodium Chloride 0.9% 1, 150 000 ml @ 50 mls/hr IV . Q20H DALILA Rx#:[id number] Sodium Chloride 0.9% 1, 75 000 ml @ 75 mls/hr IV . [id number] DALILA Rx#:[id number] cefTRIAXone 1,000 mg In 50 Sodium Chloride 0.9% 50 ml @ 100 mls/hr IVPB Q24HR DALILA Rx#:[id number] Output: Urine 15 55 15 Other 1999 Other: Voiding Method Indwelling Catheter Indwelling Catheter - Exam - Constitutional General appearance: average body habitus, disheveled, mild distress, somnolent but does respond to deep painful stimuli - EENT Eyes: EOMI, PERRLA, poor dentition, normal appearance ENT: hard of hearing Ears: bilateral: normal - Neck Carotids: bilateral: upstroke normal, neck bruise noted Thyroid: bilateral: normal size - Respiratory Respiratory: bilateral:, diminished, bilateral crackles slightly more compared to yesterday - Cardiovascular Heart sounds: normal: S1, S2 - Neurologic Neurologic: CNII-XII intact, pupils are midsize equal reactive to light patient does withdraw to pain but remains somnolent she does move all 4 extremity, at times goes into episodes of tachypnea - Musculoskeletal Musculoskeletal: generalized weakness, strength equal bilaterally, and does move all 4 extremities - Labs CBC & Chem 7: 08/18/18 04:47 08/18/18 04:47 Labs: Abnormal Lab Results - Last 24 Hours (Table) 08/18/18 08/18/18 08/18/18 Range/Units 04:47 04:47 04:47 RBC 2.47 L (3.80-5.40) m/uL Hgb 8.0 L (11.4-16.0) gm/dL Hct 24.9 L (34.0-46.0) % MCV 100.7 H (80.0-100.0) fL RDW 18.6 H (11.5-15.5) % Plt Count 27 L (150-450) k/uL Neutrophils # (Manual) 8.80 H (1.3-7.7) k/uL Lymphocytes # (Manual) 0.91 L (1.0-4.8) k/uL Myelocytes # (Manual) 0.10 H (0) k/uL Nucleated RBCs 1 H (0-0) /100 WBC PT 20.8 H (9.0-12.0) sec INR 2.3 H (<1.2) Chloride 97 L (98-107) mmol/L BUN 88 H (7-17) mg/dL Creatinine 4.49 H (0.52-1.04) mg/dL Glucose 119 H (74-99) mg/dL Calcium 7.1 L (8.4-10.2) mg/dL Total Bilirubin 1.5 H (0.2-1.3) mg/dL ALT 2175 H (9-52) U/L Alkaline Phosphatase 174 H (38-126) U/L Total Protein 5.4 L (6.3-8.2) g/dL Albumin 3.0 L (3.5-5.0) g/dL Microbiology - Last 24 Hours (Table) 08/15/18 13:57 Urine Culture - Final Urine,Catheterized Citrobacter freundii 08/15/18 12:48 Blood Culture - Preliminary Blood No Growth after 48 hours Assessment and Plan Assessment: Altered mental status encephalopathy multifactorial Hypovolemic shock Severe profound metabolic acidosis related to lactic acidosis due to intravascular volume depletion and dehydration and acute on chronic renal failure Acute rhabdomyolysis Shock liver with very high liver enzymes Coagulopathy multifactorial Stage V renal failure Plan: Continue gentle rehydration Bicarb drip Patient is status post first cycle of hemodialysis undergoing second cycle Would recommend to give vitamin K daily 10 mg We will initiate patient on broad-spectrum antibiotics with IV Rocephin Follow-up on urine culture results and reports Overall long-term prognosis poor Reviewed nasopharyngeal swab for influenza A and B Reviewed labs and x-ray tomorrow Patient will likely need repeated cycle off of hemodialysis, family is leaning towards comfort measures after the hemodialysis if no significant improvement is noted Critical care time 35 minutes Time with Patient: Greater than 30
[2018-08-18] MEDS ORDERED: MORPHINE SULFATE 2 MG/ML SYRINGE IVP ONE (11:14)
[2018-08-18] MEDS ORDERED: MORPHINE SULFATE 2 MG/ML SYRINGE IV PRN (11:53)
[2018-08-18] MEDS ORDERED: ATROPINE OPHTH SOLN 1% 5ML BTL SUBLINGUAL PRN (11:53)
[2018-08-18] MEDS ORDERED: LORazepam 2 MG/ML INJ IV PRN (11:53)
[2018-08-18] MEDS ORDERED: SCOPOLAMINE 1.5MG/72HR PATCH TRANSDERM SCH (12:00)
[2018-08-18] MEDS ORDERED: MORPHINE SULFATE (100 MG/2 ML) 100 MG in SODIUM CHLORIDE 0.9% 100 ML IV SCH (12:00)
[2018-08-18 13:05] LABS: Hepatitis B Surface AB- Quant 64.7 mIU/mL
--- NOTE | 2018-08-18 13:19 | PCN ---
PROCEDURE NOTE PREOPERATIVE DIAGNOSIS: Renal failure with high potassium. PROCEDURE PERFORMED: Placement of the dialysis catheter, right femoral approach. DESCRIPTION OF THE PROCEDURE: The patient was seen in the room. Right groin was prepped and draped in the usual sterile manner and 1% lidocaine was infiltrated. Micropuncture into the right femoral vein. Micropuncture guide was passed and 4-Chinese dilator advanced on top of the guidewire. Then we passed a regular guidewire without any resistance and the dilator was advanced and a 20 cm dialysis catheter was advanced on top of the guidewire. The guidewire was removed and flushed with heparin saline and hep-locked and secured with 3- 0 nylon. Dressing applied. Patient tolerated the procedure well. MMODL / IJN: [id number] /
--- NOTE | 2018-08-18 13:19 | CONS ---
DATE OF CONSULTATION: 08/18/2018 An 88-year-old female. She was seen in the intensive care unit. I was consulted for placement of urgent dialysis catheter. Patient has a high potassium and abnormal liver function. PAST MEDICAL HISTORY: patient's medical history includes history of blood disorder, history of hyperlipidemia, history of osteoarthritis, history of renal disease, history of thyroid disorder. PHYSICAL EXAMINATION: The patient was seen in the room. She is moaning and groaning. She is very restless and the patient was given some IV sedation for placement of the catheter. Abdomen is soft. No peritoneal signs noted. Femoral pulses are present. PLAN: Placement of the dialysis catheter. Risks and complications discussed. MMODL / IJN: [id number] / [email or web address]
[2018-08-18 16:14] VITALS: BP 137/69; PULSE 69; RESP 8
--- NOTE | 2018-08-19 09:33 | P.DS ---
Providers Date of admission: 08/15/18 17:28 Expected date of discharge: 08/18/18 Attending physician: Wendy Muller Consults: 08/17/18 20:07 Consult Physician Routine Consulting Provider: Juve Hudson Consult Reason/Comments: pancytopenia, r/o DIC Do you want consulting provider notified?: Yes Primary care physician: Rikki Leong Hospital Course: This is an 85-year-old female in of Dr. Muller with a previous medical history significant for hypertension and hypertensive perivascular disease, hyperlipidemia, hypothyroidism, chronic kidney disease stage IV, anemia of chronic kidney disease, depression, GERD, last admitted in August 2016 for acute chest pain. Patient was reported to have an ejection fraction 20% with global hypokinesia with possible underlying ischemic cardiomyopathy and valvular heart disease. Patient was also found to have mild troponin anemia, elevated transaminitis. Detailed workup was done during that admission. Hepatitis panel was negative. CMV IgG antibody was reactive Lamont-Mcconnell virus IgG antibody was reactive. Ultrasound of the abdomen showed that the hepatic ascites during that time. Patient also had hematochromatosis workup that was negative. He did have positive ROMERO but negative double-stranded DNA. Complement C3 and C4 levels were low. Patient was transferred to [facility] during that visit. Patient comes in this time with change in mental status for 1 day. According to the daughter bedside patient was having trouble with her lower extremity and was feeling unfelt for the past 1 week. She had some she had sciatica like pain in her lower extremity and was having difficulty walking. She lost appetite and is stopped eating or drinking 2 days ago. Patient noticed patient was moaning and groaning and had some hallucinations. She was brought to the ER had a heart rate of 52, saturating 96% on 2 L. The blood pressure 163/97. Labs obtained suggested a hemoglobin 10.1 leukocytosis 16.8, his potassium 6.6 normal sodium, creatinine of 5.12 patient has CK D stage IV baseline, BUN 97. EKG was obtained that suggested a rate of [address] changes were noted. PT/INR was elevated with INR of 3.3. Lactic acid was 7.7. CK was elevated to 2116 with a troponin of 1.66. Urine drug screen was negative urine analysis positive for blood with 10 WBCs metabolic acidosis with anion gap of 18 was seen. AST 5684 ALT 3170 alkaline phosphatase 108 and lipase 2126. Patient received Kayexalate rectally arm. Vitamin K for the elevated INR. No active seizures seen. CT was obtained in the ER that was negative for any acute abnormality. Patient was evaluated this morning is unable to provide any history. Continues to be a moaning in pain. Repeat labs this morning suggested worsening of liver function test. Home with the metabolic acidosis concern for temporary dialysis been raised. The Dr. Clement is consulted for placement of temporary dialysis catheter. Repeat CMP is obtained. Abdomen CT will be obtained to rule out pancreatitis, biliary stone, liver cirrhosis and any acute infection. Lactic acid improved to 4 after fluid resuscitation. EEG ordered. Ammonia level is ordered. Patient needs NG tube placement for lactulose 3 times a day orally. Patient is obtained and unable to provide any history. Continues to be in the ICU blood pressure 146/76 respiratory rate 15, pulse rate 64 saturating 100% on room air. Patient underwent dialysis this morning 2 L of fluid removed. Potassium has improved INR has improved ammonia levels came down to 9. NG tube could not be placed patient has significant bruises involving the neck and the upper chest. Hemoglobin is 7 drop from 9.6 lactic acid continue to trend up from 3.3-4. Troponin trending down to 1.8. AST improved from 7070-8680, AST improved from 3000 172 2551 alkaline phosphatase normalized to 1.20 patient continues to be encephalopathic despite dialysis. No improvement on painful stimuli. EEG pending. Neurology consulted. Urine culture positive for gram- negative rods. Patient received 3 bags of FFP prior to dialysis. continue bicarb drip. One dose of vitamin K 10 mg given. Continue Rocephin and vancomycin. CT abdomen done yesterday suggested perihepatic ascites, atrophic pancreas but no dilated bowels for concern of colitis bilateral pleural effusion seen. Concern for fluid overload. Patient has made minimal urine output or improvement in mental status. Patient is a poor prognosis. If no improvement seen in 24 hours as consider hospice 08/18: Patient has been transitioned over to comfort care only and consult placed with [facility] hospice with plan for patient to be transitioned to [facility]. Patient appears comfortable at this time. Family is at the bedside and updated. 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 Please see nursing documentation for details. Discharge diagnoses: #1 acute metabolic encephalopathy likely secondary to acute hypovolemic shock and shock liver and uremia from acute kidney injury. #2 hyperkalemia with metabolic acidosis secondary to acute kidney injury. #3 acute kidney injury secondary to ATN with CKD IV with metabolic acidosis. Probably secondary to rhabdomyolysis and worsening chronic kidney disease. #4 ischemic cardiomyopathy with previous history of N STEMI. #5 hypertension and hypertensive atherosclerotic disease #6 hyperlipidemia #7 acute transaminitis patient has a acute increase in liver function tests. #8 acute rhabdomyolysis #9 hypercoagulopathy secondary to acute hepatic failure. #10 hypothyroidism #11 acute on chronic anemia of chronic kidney disease #12 GERD #13 recurrent depression Acute pancreatitis Acute hypercoagulopathy and thrombocytopenia secondary to liver failure Citrobacter urinary tract infection Plan: Comfort care and transition to inpatient hospice Impression and plan of care have been directed as dictated by the signing physician. Minal Perez nurse practitioner acting as scribe for signing physician. Patient Condition at Discharge: Undetermined Plan - Discharge Summary Discharge Rx Participant: Yes New Discharge Prescriptions: No Action Rosuvastatin [Crestor] 10 mg PO AC-SUPPER Levothyroxine Sodium [Synthroid] 75 mcg PO AC-BRKFST Calcium Carbonate/Vitamin D3 [Caltrate 600 Plus D3 Tablet] 1 tab PO AC-SUPPER Metoprolol Succinate (ER) [Toprol Xl] 50 mg PO AC-SUPPER Famotidine [Pepcid] 20 mg PO AC-BRKFST Aspirin EC [Ecotrin Low Dose] 81 mg PO AC-SUPPER Allopurinol [Zyloprim] 100 mg PO AC-BRKFST buPROPion XL [Wellbutrin Xl] 150 mg PO AC-BRKFST Cyanocobalamin (Vitamin B-12) [Vitamin B-12] 1,000 mcg PO AC-SUPPER Vitamin D3(Unknown) 1 tab PO AC-BRKFST traMADol HCL [Ultram] 25 mg PO BID PRN PRN Reason: Pain Multivitamins, Thera [Multivitamin (formulary)] 1 tab PO AC-SUPPER Isosorbide Mononitrate ER [Imdur] 60 mg PO AC-BRKFST Furosemide [Lasix] 40 mg PO MOFR Discharge Medication List Levothyroxine Sodium [Synthroid] 75 mcg PO AC-BRKFST 09/24/14 [History] Rosuvastatin [Crestor] 10 mg PO AC-SUPPER 09/24/14 [History] Calcium Carbonate/Vitamin D3 [Caltrate 600 Plus D3 Tablet] 1 tab PO AC-SUPPER [History] Allopurinol [Zyloprim] 100 mg PO AC-BRKFST 04/09/17 [History] Aspirin EC [Ecotrin Low Dose] 81 mg PO AC-SUPPER 04/09/17 [History] Famotidine [Pepcid] 20 mg PO AC-BRKFST 04/09/17 [History] Metoprolol Succinate (ER) [Toprol Xl] 50 mg PO AC-SUPPER 04/09/17 [History] Cyanocobalamin (Vitamin B-12) [Vitamin B-12] 1,000 mcg PO AC-SUPPER 03/21/18 [ History] buPROPion XL [Wellbutrin Xl] 150 mg PO AC-BRKFST 03/21/18 [History] Furosemide [Lasix] 40 mg PO MOFR 08/15/18 [History] Isosorbide Mononitrate ER [Imdur] 60 mg PO AC-BRKFST 08/15/18 [History] Multivitamins, Thera [Multivitamin (formulary)] 1 tab PO AC-SUPPER 08/15/18 [ History] Vitamin D3(Unknown) 1 tab PO AC-BRKFST 08/15/18 [History] traMADol HCL [Ultram] 25 mg PO BID PRN 08/15/18 [History] Follow up Appointment(s)/Referral(s): Rikki Leong MD [Primary Care Provider] - 1-2 days Torin Avila MD [STAFF PHYSICIAN] - 1 Week Discharge Disposition: [facility] TO [facility]
--- NOTE | 2018-08-19 12:30 | CDI ---
Last Revision, August 2017 Documentation Clarification Form Date: 08/19/18 From: Karena Jackman Phone: If you have a question , please contact Radha Zambrano at [phone] between 8am and 5pm. Admit Date: 08/15/2018 5:28:00 PM Patient Name: Angelica Strickland Visit Number: [id number] Discharge Date: 08/18/18 ATTENTION: The Clinical Documentation Specialists (CDI) and [facility] Coding Staff appreciate your assistance in clarifying documentation. Please respond to the clarification below the line at the bottom and electronically sign. The CDI & [facility] Coding staff will review the response and follow-up if needed. Please note: Queries are made part of the Legal Health Record. If you have any questions, please contact the author of this message via ITS. Maggy Hsieh MD/LAMBERTO MartinezC Findings of sepsis is documented in the ED note. UTI and severe sepsis associated with gram-negative rods is documented in Dr. Harkins's 08/17 and 08/18 progress notes. History/Risk Factors: Patient was admitted with acute metabolic encephalopathy likely secondary to shock liver and uremia from acute kidney injury. Patient also had a UTI due to Citrobacter Clinical Indicators: leukocytosis, elevated lactic acid, altered mental status WBC/Left Shift 16.8/15.0 Lactic acid: 7.7 Blood cultures: No growth Vitals signs on admission: T. 97.7, P. 52, R. 18, BP 163/97 Antibiotics: IV Cepefepime, IV Ceftriaxone, IV Metronidazole, IV Vancomycin IV Bolus: Sodium chloride 1 liter, then at 250 mls/hr In your professional opinion, please clarify if these findings signify one of the following conditions: Sepsis ruled out Sepsis Severe Sepsis Septic Shock Other, please specify Unable to determine Link or clarify if there is associated (due to/with): Organ failure Shock severe sepsis with organ failure MTDD
--- NOTE | 2018-08-21 21:04 | EEG ---
ELECTROENCEPHALOGRAM REPORT DATE OF EE08/18/2018. REFERRING PHYSICIAN: Dr. Muller. CONSULTING/INTERPRETING PHYSICIAN: Dr. Colleen Hdz MD ELECTROENCEPHALOGRAPHIC EXAMINATION REPORT: INDICATION FOR EXAMINATION: This patient is a 88-year-old female being evaluated for altered mental status and confusion. A[age]: [age]. EEG FINDINGS: A routine 21 channel awake digital EEG recording was accomplished utilizing the 10-20 international system with bipolar and referential montages. The background activity in the most alert resting state consists of a low to medium amplitude, poorly developed and poorly sustained 3-4 hertz activity over the posterior head regions. This posterior rhythm attenuates minimally to eye opening. There is a moderate amount of low amplitude 18-20 Hz beta activity seen maximally over the anterior head regions. Muscle and movement artifact was observed on a few occasions during the tracing. Hyperventilation was not performed. Photic stimulation at flash frequencies of 2-30 Hz produced a minimal occipital driving response. No epileptiform discharges were seen. IMPRESSION: This EEG gives evidence of a severe widespread diffuse disturbance in cerebral function. The EEG failed to reveal any focal, lateralized, or epileptiform abnormalities. If clinically indicated, a followup EEG is recommended. Clinical correlation is recommended. MMODL / IJN: [id number] /
--- NOTE | 2018-08-29 13:47 | CDI ---
Documentation Clarification Form Date: 08/29/18 From: Karena Jackman Phone: If you have a question regarding this query, please contact Radha Zambrano at [phone] between 8am and 5pm. Admit Date: 08/15/2018 5:28:00 PM Patient Name: Angelica Strickland Visit Number: [id number] Discharge Date: 08/18/2018 5:01:00 PM ATTENTION: The Clinical Documentation Specialists (CDI) and [facility] Coding Staff appreciate your assistance in clarifying documentation. Please respond to the clarification below the line at the bottom and electronically sign. The CDI & [facility] Coding staff will review the response and follow-up if needed. Please note: Queries are made part of the Legal Health Record. If you have any questions, please contact the author of this message via ITS. Dr. Maggy Vergara Thank you for signing your previous query. Please document a response before signing this query. Findings of sepsis is documented in the ED note. UTI and severe sepsis associated with gram-negative rods is documented in Dr. Harkins's 08/17 and 08/18 progress notes. History/Risk Factors: Patient was admitted with acute metabolic encephalopathy likely secondary to shock liver and uremia from acute kidney injury. Patient also had a UTI due to Citrobacter Clinical Indicators: leukocytosis, elevated lactic acid, altered mental status WBC/Left Shift 16.8/15.0 Lactic acid: 7.7 Blood cultures: No growth Vitals signs on admission: T. 97.7, P. 52, R. 18, BP 163/97 Antibiotics: IV Cepefepime, IV Ceftriaxone, IV Metronidazole, IV Vancomycin IV Bolus: Sodium chloride 1 liter, then at 250 mls/hr In your professional opinion, please clarify if these findings signify one of the following conditions: Sepsis ruled out SIRS, without underlying infectious process Sepsis Severe Sepsis Septic Shock Other, please specify Unable to determine Link or clarify if there is associated (due to/with): Organ failure Shock severe sepsis with organ failure MTDD
== END 2018-08-18 17:01 | disposition hospice, inpatient (51) | DRG 871 ==
LOC: EC 12:37 → 2SICU 17:28
PROVIDERS: ADMIT Family Medicine; ATTEND Family Medicine
PROC: 5A1D70Z Performance of Urinary Filtration, Intermittent, Less than 6 Hours Per Day (ICD-10-PCS; principal; 2018-08-17)
PROC: 30233K1 Transfusion of Nonautologous Frozen Plasma into Peripheral Vein, Percutaneous Approach (ICD-10-PCS; 2018-08-17)
PROC: 06HY33Z Insertion of Infusion Device into Lower Vein, Percutaneous Approach (ICD-10-PCS; 2018-08-18)
DX: A41.59 Other Gram-negative sepsis (principal); N17.0 Acute kidney failure with tubular necrosis; G93.41 Metabolic encephalopathy; K72.00 Acute and subacute hepatic failure without coma; K85.90 Acute pancreatitis without necrosis or infection, unspecified; R57.1 Hypovolemic shock; D68.9 Coagulation defect, unspecified; F33.9 Major depressive disorder, recurrent, unspecified; I13.0 Hypertensive heart and chronic kidney disease with heart failure and stage 1 through stage 4 chronic kidney disease, or unspecified chronic kidney disease; I50.22 Chronic systolic (congestive) heart failure; M62.82 Rhabdomyolysis; N39.0 Urinary tract infection, site not specified; I16.1 Hypertensive emergency; E87.2 Acidosis; N18.4 Chronic kidney disease, stage 4 (severe); R65.20 Severe sepsis without septic shock; D63.1 Anemia in chronic kidney disease; D69.59 Other secondary thrombocytopenia; E03.9 Hypothyroidism, unspecified; E78.5 Hyperlipidemia, unspecified; E87.5 Hyperkalemia; F41.9 Anxiety disorder, unspecified; I25.10 Atherosclerotic heart disease of native coronary artery without angina pectoris; I25.2 Old myocardial infarction; I25.5 Ischemic cardiomyopathy; K21.9 Gastro-esophageal reflux disease without esophagitis; K72.10 Chronic hepatic failure without coma; B96.89 Other specified bacterial agents as the cause of diseases classified elsewhere; M54.32 Sciatica, left side; M54.31 Sciatica, right side; I27.20 Pulmonary hypertension, unspecified; M19.90 Unspecified osteoarthritis, unspecified site; M1A.9XX0 Chronic gout, unspecified, without tophus (tophi); R00.1 Bradycardia, unspecified; Z51.5 Encounter for palliative care; Z79.82 Long term (current) use of aspirin; Z79.890 Hormone replacement therapy; Z79.899 Other long term (current) drug therapy; Z96.653 Presence of artificial knee joint, bilateral; Z87.440 Personal history of urinary (tract) infections; Z90.49 Acquired absence of other specified parts of digestive tract; Z98.42 Cataract extraction status, left eye; Z98.41 Cataract extraction status, right eye; Z96.1 Presence of intraocular lens; Z82.49 Family history of ischemic heart disease and other diseases of the circulatory system; Z82.3 Family history of stroke; Z80.9 Family history of malignant neoplasm, unspecified
CPT/HCPCS: 36415; 51702; 70450; 71045; 71046; 74018; 74150; 76700; 80048; 80053; 80202; 80299; 80306; 81001; 82140; 82550; 82553; 83520; 83605; 83615; 83690; 84100; 84484; 85025; 85384; 85610; 85730; 86704; 86706; 86850; 86900; 86901; 87040; 87077; 87086; 87186; 87340; 87502; 90935; 93005; 93306; 94640; 95816; 96361; 96365; 96366; 96367; 96368; 96375; 99291

== ENCOUNTER 2018-08-18 15:43 | Inpatient (IN) | payer MEDICAID ==
[2018-08-18] MEDS ORDERED: HALOPERIDOL LACTATE 5 MG/ML 1 ML VIAL IVP PRN (16:16)
[2018-08-18] MEDS ORDERED: ACETAMINOPHEN TAB 325 MG TAB PO PRN (16:16)
[2018-08-18] MEDS ORDERED: ATROPINE OPHTH SOLN 1% 5ML BTL SUBLINGUAL PRN (16:16)
[2018-08-18] MEDS ORDERED: LORazepam 2 MG/ML INJ IV PRN (16:16)
[2018-08-18] MEDS ORDERED: MORPHINE SULFATE (100 MG/2 ML) 100 MG in SODIUM CHLORIDE 0.9% 100 ML IV SCH (16:30)
[2018-08-18] MEDS ORDERED: SODIUM CHLORIDE 0.9% 1,000 ML IV SCH (16:30)
[2018-08-18 21:26] VITALS: TEMP 97.8
[2018-08-19 01:29] VITALS: BP 89/53; PULSE 25; RESP 0
[2018-08-21] MEDS ORDERED: SCOPOLAMINE 1.5MG/72HR PATCH TRANSDERM SCH (12:00)
== END 2018-08-19 03:32 | disposition expired | DRG 951 ==
LOC: 2SICU 17:07
PROVIDERS: ADMIT Family Medicine; ATTEND Family Medicine
DX: Z51.5 Encounter for palliative care (principal); G93.41 Metabolic encephalopathy; N17.0 Acute kidney failure with tubular necrosis; K72.00 Acute and subacute hepatic failure without coma; N18.4 Chronic kidney disease, stage 4 (severe); M62.82 Rhabdomyolysis; D68.4 Acquired coagulation factor deficiency; I13.10 Hypertensive heart and chronic kidney disease without heart failure, with stage 1 through stage 4 chronic kidney disease, or unspecified chronic kidney disease; E78.5 Hyperlipidemia, unspecified; D63.1 Anemia in chronic kidney disease; F32.9 Major depressive disorder, single episode, unspecified; K21.9 Gastro-esophageal reflux disease without esophagitis; I25.5 Ischemic cardiomyopathy; I25.2 Old myocardial infarction; E03.9 Hypothyroidism, unspecified